=== PATIENT | male | born 1970 | race American Indian/Alaskan Native ===

== ENCOUNTER 2017-10-24 12:10 | Inpatient (IN) | payer OTHER ==
[2017-10-24] MEDS ORDERED: NACL 0.9% 1000 ML 1,000 ML IV ONE ×2 (12:45→14:12)
[2017-10-24 13:26] LABS: Basophils % (Auto) 0.5 % (0.0-1.8); Eosinophils % (Auto) 0.1 % (0.0-4.3); Hematocrit 40.6 % (35.5-45.6); Hemoglobin 14.3 gm/dl (11.8-15.2); Lymphocytes % (Auto) 14.2 % (13.4-35.0); Mean Corpuscular HGB Conc 35 % (32-34); Mean Corpuscular Hemoglobin 32 pg (28-32); Mean Corpuscular Volume 91 fl (84-94); Monocytes # (Auto) 0.5 K/mm3 (0.0-0.8); Monocytes % (Auto) 6.8 % (0.0-7.3); Platelet Count 280 K/mm3 (140-440); Red Blood Count 4.46 M/mm3 (3.65-5.03)
[2017-10-24 13:48] LABS: Alanine Aminotransferase 29 units/L (7-56); BUN/Creatinine Ratio 20; Blood Urea Nitrogen 16 mg/dL (9-20); Calcium 10.4 mg/dL (8.4-10.2); Hemolysis Index 14
[2017-10-24] MEDS ORDERED: MORPHINE IV PRN (14:10)
[2017-10-24] MEDS ORDERED: ZOFRAN IV ONE (14:11)
--- NOTE | 2017-10-24 14:14 | Emergency Department Report ---
ED Abdominal Pain HPI - General Chief Complaint: Abdominal Pain Stated Complaint: ABD PAIN Time Seen by Provider: 10/24/17 13:35 Source: EMS Mode of arrival: Stretcher Limitations: No Limitations - History of Present Illness Initial Comments: 47-year-old presents with 2 day history of increasing lower abdominal pain, with discomfort which is constant, increasing in severity, now 8-9 out of 10, aching and cramping, but across lower abdomen. He believes he is constipated, reports not having had a bowel movement in the past 4 days, the discomfort is never felt quite so bad with previous episodes of constipation. Past medical history is significant for colon cancer 3-5 years ago, with resection and reanastomosis, and patient has done well since that time. He's had no competition that he is aware of, has no other gastrointestinal history, still has his appendix, no history of diverticulitis, no history of gallstones. He has been nauseated, but has not been vomiting, and last bowel movement as previously noted, was 4 days ago. He has had no melena, no hematemesis, no hematochezia. Only other significant medical history is hypertension. Onset/Timin -: Gradual, days(s) Location: LLQ, RLQ Radiation: none Migration to: no migration Severity: moderate Severity scale (0 -10): 8 Quality: cramping, aching Consistency: constant, other (waxing and waning features) Improves With: nothing Worsens With: nothing Associated Symptoms: nausea. denies: vomiting, diarrhea, chills, constipation, dysuria - Related Data Home Medications Medication Instructions Recorded Confirmed Last Taken Nebivolol HCl [Bystolic] 10 mg PO DAILY 07/05/14 07/05/14 Unknown amLODIPine 10 mg PO DAILY 07/05/14 07/05/14 Unknown Previous Rx's Medication Instructions Recorded Last Taken Type HYDROcodone/ACETAMINOPHEN [[place] 1 each PO Q6HR PRN #15 tablet 07/03/14 Rx 7.5-325 mg TAB] Penicillin Vk [Veetids TAB] 500 mg PO QID #40 tablet 07/03/14 Unknown Rx Allergies Allergy/AdvReac Type Severity Reaction Status Date / Time No Known Allergies Allergy Unverified 07/03/14 11:27 ED Review of Systems ROS: Stated complaint: ABD PAIN Other details as noted in HPI ED Past Medical Hx - Past Medical History Hx Hypertension: Yes Hx Psychiatric Treatment: No - Surgical History Additional Surgical History: hernia repair. colon surgery - Social History Smoking Status: Never Smoker Substance Use Type: None - Medications Home Medications: Home Medications Medication Instructions Recorded Confirmed Last Taken Type HYDROcodone/ACETAMINOPHEN [[place] 1 each PO Q6HR PRN #15 tablet 07/03/1407/05/14 Rx 7.5-325 mg TAB] Penicillin Vk [Veetids TAB] 500 mg PO QID #40 tablet 07/03/14 07/05/14 Unknown Rx Nebivolol HCl [Bystolic] 10 mg PO DAILY 07/05/14 07/05/14 Unknown History amLODIPine 10 mg PO DAILY 07/05/14 07/05/14 Unknown History ED Physical Exam - General Limitations: No Limitations General appearance: alert, in distress (from abdominal discomfort, moves somewhat reluctantly) - Head Head exam: Present: atraumatic, normocephalic - Eye Eye exam: Present: PERRL, EOMI - ENT ENT exam: Present: normal exam, mucous membranes moist - Neck Neck exam: Present: normal inspection, full ROM. Absent: tenderness - Respiratory Respiratory exam: Present: normal lung sounds bilaterally. Absent: wheezes, rales, rhonchi - Cardiovascular Cardiovascular Exam: Present: regular rate, normal heart sounds - GI/Abdominal GI/Abdominal exam: Present: tenderness, guarding (moderate guarding all quadrants), rebound (2+ rebound.) ED Course Vital Signs 10/24/17 10/24/17 10/24/17 12:20 12:30 12:33 Temperature 36.6 C Pulse Rate 90 90 Respiratory 16 22 Rate Blood Pressure 138/90 136/84 Blood Pressure [Left] O2 Sat by Pulse 100 18 L Oximetry 10/24/17 10/24/17 10/24/17 12:41 12:45 13:01 Temperature Pulse Rate 104 H 112 H Respiratory 18 14 17 Rate Blood Pressure 132/95 132/95 Blood Pressure [Left] O2 Sat by Pulse 100 100 97 Oximetry 10/24/17 10/24/17 13:05 14:31 Temperature Pulse Rate Respiratory 17 17 Rate Blood Pressure Blood Pressure 132/95 [Left] O2 Sat by Pulse 97 Oximetry - Reevaluation(s) Reevaluation #1: 10/24/17 16:02 Patient resting much more comfortably after morphine and ondansetron administered, IV fluids administered, positive findings of small bowel obstruction likely due to adhesions from his prior colon resection, and admission to the care of hospitalist Dr. Zuñiga as well as consult with general surgeon Dr. Morocho. ED Medical Decision Making - Lab Data Result diagrams: 10/24/17 13:01 10/24/17 13:01 - Radiology Data Radiology results: report reviewed (early mechanical small bowel obstruction, an area of anastomosis, proximal to mid small intestine, near left upper quadrant.) - Medical Decision Making Patient has an acute small bowel obstruction, secondary to adhesions from prior surgery, he is clinically stable, resting much more comfortably, but will need consultation with surgeon, and will be hospitalized for admission, observation, comfort, and bowel rest. Further care per surgeon and hospitalist. - Differential Diagnosis constipation, small bowel obstruction Critical Care Time: No Critical care attestation.: If time is entered above; I have spent that time in minutes in the direct care of this critically ill patient, excluding procedure time. ED Disposition Clinical Impression: Small bowel obstruction due to adhesions Disposition: OP ADMIT IP TO THIS HOSP Is pt being admited?: Yes Does the pt Need Aspirin: No Condition: Stable Referrals: PRIMARY CARE, [Primary Care Provider] - 3-5 Days Time of Disposition: 16:05
--- NOTE | 2017-10-24 15:55 | Cat Scan Report ---
FINAL REPORT EXAM: CT ABDOMEN PELVIS W CON HISTORY: lower abd pain 2 d; TECHNIQUE: Spiral CT scanning of the abdomen and pelvis after the uneventful administration of IV contrast. Multiplanar reformations. 100 mL Omnipaque IV. PRIORS: None. FINDINGS: Abdomen: Visualized lung bases grossly unremarkable. No radiopaque gallstones. Liver shows small and round, hyperdense or enhancing focus in the right lobe subdiaphragmatic region measuring 1.2 cm may represent hemangioma, but nonspecific. Remainder of liver unremarkable. Rounded hypodensity in the posteroinferior spleen measuring approximately 9 mm may represent cyst or hemangioma. Remainder of spleen unremarkable. Pancreas without significant abnormality. Right renal cyst measures approximately 3 cm. Left kidney grossly unremarkable. Adrenal glands without significant abnormality. Pelvis: Postsurgical change and anastomosis in probable distal transverse or proximal descending colon in the left upper abdomen. Multiple loops of dilated proximal and mid small bowel containing gas and fluid. Distal small bowel is decompressed suggesting possible transition point. No apparent pneumatosis. Probable diminutive appendix partially visualized and grossly unremarkable. No significant free peritoneal fluid or discrete abscess. Abdominal aorta non-aneurysmal. Mild dextroconvex curvature and degenerative change in the lumbar spine. Postsurgical change and probable mesh placement in mid anterior abdominal wall. IMPRESSION: 1. Findings compatible with mechanical small bowel obstruction, with possible transition point suggested in the mid-distal small bowel, although exact location uncertain. Follow up suggested. 2. Hepatic hypodensity possibly representing hemangioma, but nonspecific. Correlation with liver ultrasound may be confirmatory, as clinically indicated. 3. Splenic hypodensity possibly representing cyst versus hemangioma or lymphangioma, but nonspecific. Correlation with ultrasound may be confirmatory, as clinically indicated. 4. Right renal cyst. Dr. Portillo discussed results with Dr. Márquez on 24 October 2017 at approximately 1543 hours EST.
--- NOTE | 2017-10-24 16:04 | History and Physical Report ---
History of Present Illness Chief complaint: my stomach hurts History of present illness: 47 YO Male with HTN, Colon Cancer S/P Resection presents to ED for evaluation. Pt states that he has experienced abdominal pain for the past 5 days with worsening symptoms over the past 2 days. Pt states that pain is 8-9/10, diffuse , worse with movement, relieved with rest. Pt denies flatus, and bowel movement over the past 2 days. Pt seen and evaluated in ED and found to have evidence of Bowel obstruction. Surgery team consulted in ED. Pt denies fever, chills, CP, Palpitation, Trauma, BRBPR, unintentional weight loss, night sweats, bone pain, melena, change in size,color, or caliber of his stool. Pt admitted to medical floor. Past History Past Medical History: cancer, hypertension Past Surgical History: bowel surgery Social history: , lives with family. denies: smoking, alcohol abuse, prescription drug abuse Family history: hypertension Medications and Allergies Allergies Allergy/AdvReac Type Severity Reaction Status Date / Time No Known Allergies Allergy Unverified 07/03/14 11:27 Home Medications Medication Instructions Recorded Confirmed Last Taken Type HYDROcodone/ACETAMINOPHEN [[place] 1 each PO Q6HR PRN #15 tablet 07/03/1407/05/14 Rx 7.5-325 mg TAB] Penicillin Vk [Veetids TAB] 500 mg PO QID #40 tablet 07/03/14 07/05/14 Unknown Rx Nebivolol HCl [Bystolic] 10 mg PO DAILY 07/05/14 07/05/14 Unknown History amLODIPine 10 mg PO DAILY 07/05/14 07/05/14 Unknown History Active Meds: Active Medications Sodium Chloride (Nacl 0.9% 1000 Ml) 1,000 mls @ 250 mls/hr IV ONCE ONE Stop: 10/24/17 16:44 Last Admin: 10/24/17 12:48 Dose: 250 mls/hr Sodium Chloride (Nacl 0.9% 1000 Ml) 1,000 mls @ 250 mls/hr IV ONCE ONE Stop: 10/24/17 18:11 Last Admin: 10/24/17 14:32 Dose: 250 mls/hr Morphine Sulfate (Morphine) 4 mg IV Q1H PRN PRN Reason: Pain, Moderate (4-6) Last Admin: 10/24/17 14:31 Dose: 4 mg Review of Systems Constitutional: no weight loss, no weight gain, no fever, no chills, no sweats, no night sweats, no anorexia, no weakness, no malaise Ears, nose, mouth and throat: no ear pain, no ear discharge, no tinnitis, no decreased hearing, no nose pain, no nasal congestion, no nasal discharge Cardiovascular: no chest pain, no orthopnea, no palpitations, no rapid/ irregular heart beat, no edema, no syncope, no lightheadedness Respiratory: no cough, no cough with sputum, no excessive sputum, no hemoptysis , no shortness of breath Gastrointestinal: abdominal pain, constipation, no nausea, no vomiting, no diarrhea, no excessive gas Genitourinary Male: no hematuria, no flank pain, no discharge, no urinary frequency, no urinary hesitancy Rectal: no pain, no incontinence, no bleeding Musculoskeletal: no neck stiffness, no neck pain, no shooting arm pain, no arm numbness/tingling, no low back pain, no shooting leg pain Integumentary: no rash, no pruritis, no redness, no sores, no wounds Neurological: no transient paralysis, no paralysis, no weakness, no parathesias , no numbness, no tingling, no seizures, no syncope Psychiatric: no anxiety, no memory loss, no change in sleep habits, no sleep disturbances, no insomnia, no hypersomnia, no change in appetite, no change in libido, no suicidal ideation, no disorientation Endocrine: no cold intolerance, no heat intolerance, no polyphagia, no excessive thirst, no polydipsia, no polyuria, no nocturia Hematologic/Lymphatic: no easy bruising, no easy bleeding, no lymphadenopathy, no lymphedema Allergic/Immunologic: no urticaria, no allergic rhinitis, no wheezing, no persistent infections, no anaphylaxis Exam - Constitutional Vitals: Temp Pulse Resp BP Pulse Ox 98 F 112 H 17 132/95 97 10/24/17 12:33 10/24/17 13:01 10/24/17 14:31 10/24/17 13:05 10/24/17 13:05 General appearance: Present: mild distress - EENT Eyes: Present: PERRL ENT: hearing intact, clear oral mucosa - Neck Neck: Present: supple, normal ROM - Respiratory Respiratory effort: normal Respiratory: bilateral: CTA - Cardiovascular Heart Sounds: Present: S1 & S2. Absent: rub, click - Extremities Extremities: pulses symmetrical, No edema Peripheral Pulses: within normal limits - Abdominal General gastrointestinal: Present: soft, tender, distended, hypoactive bowel sounds Male genitourinary: Present: normal - Integumentary Integumentary: Present: clear, warm, dry - Musculoskeletal Musculoskeletal: gait normal, strength equal bilaterally - Psychiatric Psychiatric: appropriate mood/affect, intact judgment & insight - Neurologic Neurologic: CNII-XII intact, moves all extremities Results - Labs CBC & Chem 7: 10/24/17 13:10/24/17 13:01 Labs: Abnormal lab results 10/24/17 10/24/17 Range/Units 13: 13:01 MCHC 35 H (32-34) % RDW 17.0 H (13.2-15.2) % Lymph # 1.0 L (1.2-5.4) K/mm3 Seg Neutrophils % 78.4 H (40.0-70.0) % Potassium 3.2 L (3.6-5.0) mmol/L Chloride 95.2 L (98-107) mmol/L Glucose 142 H (75-100) mg/dL Calcium 10.4 H (8.4-10.2) mg/dL Total Protein 8.3 H (6.3-8.2) g/dL Assessment and Plan - Patient Problems (1) Small bowel obstruction due to adhesions Current Visit: Yes Status: Acute Plan to address problem: Surgery consulted in ED, NGT to LWS, serial abdominal exam, pain control, CT abdomen/Pelvis (2) HTN (hypertension) Current Visit: Yes Status: Acute (3) Colon cancer Current Visit: Yes Status: Acute Qualifiers: Colon location: unspecified part of colon Qualified Code(s): C18.9 - Malignant neoplasm of colon, unspecified Plan to address problem: S/P resection, CT ABdomen pelvis, supportive care (4) DVT prophylaxis Current Visit: Yes Status: Acute Plan to address problem: SCD to BLE while in bed.
[2017-10-24] MEDS ORDERED: TYLENOL PO PRN (16:05)
[2017-10-24] MEDS ORDERED: SODIUM CHLORIDE FLUSH SYRINGE 10 ML IV PRN (16:05)
[2017-10-24] MEDS ORDERED: PROVENTIL IH PRN (16:05)
[2017-10-24] MEDS ORDERED: ATIVAN IV ONE (16:26)
[2017-10-24] MEDS ORDERED: DILAUDID IV ONE (16:26)
[2017-10-24 16:31] LABS: Bilirubin,Urine NEG (Negative); Blood,Urine NEG (Negative); Color,Urine Yellow (Yellow); Protein,Urine <15 mg/dL mg/dL (Negative); RBC,Urine < 1.0 /HPF (0.0-6.0); Urobilinogen,Urine < 2.0 mg/dL (<2.0)
[2017-10-24] MEDS ORDERED: NACL 0.9% 1000 ML 1,000 ML ONE (18:11)
[2017-10-24] MEDS: DILAUDID IV PRN (20:28)
[2017-10-24] MEDS: D5/0.45NS 1,000 ML IV SCH (20:30)
[2017-10-24] MEDS: SODIUM CHLORIDE FLUSH SYRINGE 10 ML IV SCH (22:19)
[2017-10-24] MEDS: PEPCID IV SCH (22:20)
--- NOTE | 2017-10-25 00:09 | Consultation ---
REASON FOR CONSULTATION: Rule out partial small-bowel obstruction. HISTORY OF PRESENT ILLNESS: The patient is a pleasant 47-year-old gentleman who presented to the Emergency Room with recent onset of abdominal pain accompanied by nausea, vomiting, distention and constipation. PAST MEDICAL HISTORY: Pertinent for hypertension. PAST SURGICAL HISTORY: Status post partial colectomy for colon cancer approximately 5 years ago. The patient does not know which side of the colon was removed. Also, subsequent incisional hernia, which was repaired and also subsequent bilateral inguinal hernia repairs. The patient has also had followup colonoscopies. He had a septoplasty as a child. ALLERGIES: No known allergies. MEDICATIONS: Include amlodipine for blood pressure. FAMILY HISTORY: Heart disease. SOCIAL HISTORY: Denies any smoking or drinking. REVIEW OF SYSTEMS: Noncontributory. PHYSICAL EXAMINATION: GENERAL: At this time reveals the patient to be awake, alert, cooperative, in no acute distress. VITAL SIGNS: Show him to have blood pressure of 139/74, pulse of 98, respirations 16. Temperature is not recorded on chart. ABDOMEN: Examination of the abdomen reveals to be 2+ distended and nontender at present, bowel sounds are hypoactive. A midline scar is noted consistent with the patient's previous history of colectomy as well as an incisional hernia repairs. LABORATORY AND DIAGNOSTIC DATA: Lab work at present includes a CBC which shows a white count of 7.2, H and H is 14 and 40. Electrolytes show a low sodium of 3.2 and low potassium of 95. Other electrolytes are essentially normal. BUN is 16, creatinine is 0.8. LFTs are normal. A CT scan of the abdomen has been performed and findings are as follows, the findings are consistent with a mechanical small-bowel obstruction, possible transition point suggestive in the mid to distal small bowel, possible hepatic hemangioma. Also, possible cyst versus hemangioma in the spleen. Also, multiple loops of dilated proximal and mid small bowel are noted. IMPRESSION: At this time is that of a 47-year-old male, rule out partial small-bowel obstruction. RECOMMENDATIONS: To admit the patient, keep him n.p.o. on IV fluid hydration and NG suction. We will monitor clinically and repeat abdominal series in the morning. We will follow with you. Thank you very much for the consultation. JOB# [id number] FP/NTS
[2017-10-25] MEDS: DILAUDID IV PRN ×6 (00:24→23:12)
[2017-10-25] MEDS: D5/0.45NS 1,000 ML IV SCH (05:36)
[2017-10-25 11:45] LABS: BUN/Creatinine Ratio 15; Blood Urea Nitrogen 9 mg/dL (9-20); Calcium 9.5 mg/dL (8.4-10.2); Hemolysis Index 79
--- NOTE | 2017-10-25 11:51 | Progress Note ---
Assessment and Plan Assessment and plan: Small bowel obstruction -Continue NG tube decompression -Follow up abdominal series pending -Surgery following Lactic acidosis -Resolved status post iv hydration Hypokalemia -On repletion, will monitor K level History of colon cancer status post resection -For outpatient follow-up Hypertension -Stable Disposition: For discharge when medically stable History Interval history: Patient has no new complaints. He denies abdominal pain, nausea or vomiting. Hospitalist Physical - Constitutional Vitals: Temp Pulse Resp BP Pulse Ox 98.6 F 84 16 140/84 95 10/25/17 05:15 10/25/17 05:15 10/25/17 05:15 10/25/17 05:15 10/25/17 05:15 General appearance: Present: no acute distress - EENT Eyes: Present: PERRL, EOM intact ENT: hearing intact, other (NG tube in place) - Neck Neck: Present: supple - Respiratory Respiratory effort: normal Respiratory: bilateral: CTA - Cardiovascular Rhythm: regular Heart Sounds: Present: S1 & S2 - Extremities Extremities: No edema - Abdominal General gastrointestinal: soft, non-tender, absent bowel sounds - Integumentary Integumentary: Present: clear, warm, dry - Neurologic Neurologic: CNII-XII intact Results - Labs CBC & Chem 7: 10/24/17 13:01 10/25/17 10:59 Labs: Laboratory Last Values WBC 7.2 K/mm3 (4.5-11.0) 10/24/17 13:01 RBC 4.46 M/mm3 (3.65-5.03) 10/24/17 13:01 Hgb 14.3 gm/dl (11.8-15.2) 10/24/17 13:01 Hct 40.6 % (35.5-45.6) 10/24/17 13:01 MCV 91 fl (84-94) 10/24/17 13:01 MCH 32 pg (28-32) 10/24/17 13:01 MCHC 35 % (32-34) H 10/24/17 13:01 RDW 17.0 % (13.2-15.2) H 10/24/17 13:01 Plt Count 280 K/mm3 (140-440) 10/24/17 13:01 Lymph % (Auto) 14.2 % (13.4-35.0) 10/24/17 13:01 [place] % (Auto) 6.8 % (0.0-7.3) 10/24/17 13:01 Eos % (Auto) 0.1 % (0.0-4.3) 10/24/17 13:01 Baso % (Auto) 0.5 % (0.0-1.8) 10/24/17 13:01 Lymph # 1.0 K/mm3 (1.2-5.4) L 10/24/17 13:01 [place] # 0.5 K/mm3 (0.0-0.8) 10/24/17 13:01 Eos # 0.0 K/mm3 (0.0-0.4) 10/24/17 13:01 Baso # 0.0 K/mm3 (0.0-0.1) 10/24/17 13:01 Seg Neutrophils % 78.4 % (40.0-70.0) H 10/24/17 13:01 Seg Neutrophils # 5.7 K/mm3 (1.8-7.7) 10/24/17 13:01 Sodium 139 mmol/L (137-145) 10/25/17 10:59 Potassium 3.2 mmol/L (3.6-5.0) L 10/24/17 13:01 Chloride 100.4 mmol/L (98-107) 10/25/17 10:59 Carbon Dioxide 24 mmol/L (22-30) 10/25/17 10:59 Anion Gap 19 mmol/L 10/25/17 10:59 BUN 9 mg/dL (9-20) 10/25/17 10:59 Creatinine 0.6 mg/dL (0.8-1.5) L 10/25/17 10:59 Estimated GFR > 60 ml/min 10/25/17 10:59 BUN/Creatinine Ratio 15 % 10/25/17 10:59 Glucose 109 mg/dL (75-100) H 10/25/17 10:59 Lactic Acid 1.00 mmol/L (0.7-2.0) 10/24/17 23:11 Calcium 9.5 mg/dL (8.4-10.2) 10/25/17 10:59 Magnesium 2.10 mg/dL (1.7-2.3) 10/25/17 10:59 Total Bilirubin 0.90 mg/dL (0.1-1.2) 10/24/17 13:01 AST 21 units/L (5-40) 10/24/17 13:01 ALT 29 units/L (7-56) 10/24/17 13:01 Alkaline Phosphatase 87 units/L (35-129) 10/24/17 13:01 Total Protein 8.3 g/dL (6.3-8.2) H 10/24/17 13:01 Albumin 5.0 g/dL (3.9-5) 10/24/17 13:01 Albumin/Globulin Ratio 1.5 % 10/24/17 13:01 Urine Color Yellow (Yellow) 10/24/17 Unknown Urine Turbidity Clear (Clear) 10/24/17 Unknown Urine pH 8.0 (5.0-7.0) H 10/24/17 Unknown Ur Specific [place] 1.021 (1.003-1.030) 10/24/17 Unknown Urine Protein <15 mg/dl mg/dL (Negative) 10/24/17 Unknown Urine Glucose (UA) Neg mg/dL (Negative) 10/24/17 Unknown Urine Ketones Tr mg/dL (Negative) 10/24/17 Unknown Urine Blood Neg (Negative) 10/24/17 Unknown Urine Nitrite Neg (Negative) 10/24/17 Unknown Urine Bilirubin Neg (Negative) 10/24/17 Unknown Urine Urobilinogen < 2.0 mg/dL (<2.0) 10/24/17 Unknown Ur Leukocyte Esterase Neg (Negative) 10/24/17 Unknown Urine WBC (Auto) 1.0 /HPF (0.0-6.0) 10/24/17 Unknown Urine RBC (Auto) < 1.0 /HPF (0.0-6.0) 10/24/17 Unknown U Epithel Cells (Auto) < 1.0 /HPF (0-13.0) 10/24/17 Unknown Urine Yeast ([place]) Few /HPF 10/24/17 Unknown
--- NOTE | 2017-10-25 13:02 | Progress Note ---
Assessment and Plan Pt status quo. still no flatus. minimal pain at present. over 1000 cc drained from ng Abd - decreased distention, non tender Abd series pending stable awaiting abd series findings start mineral oil per ng f/u abd series in am Selected Entries 10/25/17 10/25/17 05:15 12:00 Temperature 98.6 F Pulse Rate 87 Respiratory 16 Rate Blood Pressure 164/100 Laboratory Tests 10/25/17 10:59 Sodium 139 Potassium 3.9 D Chloride 100.4 Carbon Dioxide 24 Anion Gap 19 BUN 9 Creatinine 0.6 L Objective Vital Signs - 12hr 10/25/17 10/25/17 10/25/17 04:56 05:15 12:00 Temperature 98.6 F 99.1 F Pulse Rate 84 87 Respiratory 18 16 16 Rate Blood Pressure 140/84 164/100 O2 Sat by Pulse 95 97 Oximetry - Labs 10/24/17 13:01 10/25/17 10:59 Diabetes panel 10/24/17 10/25/17 Range/Units 13:01 10:59 Sodium 142 139 (137-145) mmol/L Potassium 3.2 L 3.9 D (3.6-5.0) mmol/L Chloride 95.2 L 100.4 (98-107) mmol/L Carbon Dioxide 24 24 (22-30) mmol/L BUN 16 9 (9-20) mg/dL Creatinine 0.8 0.6 L (0.8-1.5) mg/dL Glucose 142 H 109 H (75-100) mg/dL Calcium 10.4 H 9.5 (8.4-10.2) mg/dL AST 21 (5-40) units/L ALT 29 (7-56) units/L Alkaline Phosphatase 87 (35-129) units/L Total Protein 8.3 H (6.3-8.2) g/dL Albumin 5.0 (3.9-5) g/dL Calcium panel 10/24/17 10/25/17 Range/Units 13:01 10:59 Calcium 10.4 H 9.5 (8.4-10.2) mg/dL Albumin 5.0 (3.9-5) g/dL Pituitary panel 10/24/17 10/25/17 Range/Units 13:01 10:59 Sodium 142 139 (137-145) mmol/L Potassium 3.2 L 3.9 D (3.6-5.0) mmol/L Chloride 95.2 L 100.4 (98-107) mmol/L Carbon Dioxide 24 24 (22-30) mmol/L BUN 16 9 (9-20) mg/dL Creatinine 0.8 0.6 L (0.8-1.5) mg/dL Glucose 142 H 109 H (75-100) mg/dL Calcium 10.4 H 9.5 (8.4-10.2) mg/dL Adrenal panel 10/24/17 10/25/17 Range/Units 13:01 10:59 Sodium 142 139 (137-145) mmol/L Potassium 3.2 L 3.9 D (3.6-5.0) mmol/L Chloride 95.2 L 100.4 (98-107) mmol/L Carbon Dioxide 24 24 (22-30) mmol/L BUN 16 9 (9-20) mg/dL Creatinine 0.8 0.6 L (0.8-1.5) mg/dL Glucose 142 H 109 H (75-100) mg/dL Calcium 10.4 H 9.5 (8.4-10.2) mg/dL Total Bilirubin 0.90 (0.1-1.2) mg/dL AST 21 (5-40) units/L ALT 29 (7-56) units/L Alkaline Phosphatase 87 (35-129) units/L Total Protein 8.3 H (6.3-8.2) g/dL Albumin 5.0 (3.9-5) g/dL
[2017-10-25] MEDS: APRESOLINE IV PRN (13:03)
[2017-10-25] MEDS: PEPCID IV SCH ×2 (13:03→23:11)
[2017-10-25] MEDS: SODIUM CHLORIDE FLUSH SYRINGE 10 ML IV SCH (13:04)
--- NOTE | 2017-10-25 13:36 | XRay Report ---
ABDOMINAL SERIES: History: Follow up small bowel obstruction. Erect chest film shows no acute or significant changes involving the heart or lung santizo. A nasogastric tube has been inserted which terminates in the fundus of the stomach. Decreased dilated proximal small bowel loops is demonstrated since the CT performed yesterday. There is no evidence of free air beneath the diaphragms. shadows are unremarkable. IMPRESSION: Decreased small bowel dilatation since yesterday's exam. Near normal bowel gas pattern.
[2017-10-25] MEDS: ZOFRAN IV PRN (14:16)
[2017-10-25] MEDS: MINERAL OIL PO SCH ×3 (17:27→23:11)
[2017-10-25] MEDS: D5W/0.45% NACL/KCL 30 MEQ 30 MEQ/1,000 ML BAG IV SCH (17:28)
[2017-10-25] MEDS ORDERED: TYLENOL PR PRN (18:03)
[2017-10-26] MEDS: SODIUM CHLORIDE FLUSH SYRINGE 10 ML IV SCH ×3 (00:31→22:52)
[2017-10-26] MEDS: D5W/0.45% NACL/KCL 30 MEQ 30 MEQ/1,000 ML BAG IV SCH ×3 (00:53→23:03)
[2017-10-26] MEDS: MINERAL OIL PO SCH ×5 (01:37→18:57)
[2017-10-26] MEDS: MORPHINE IV PRN ×3 (01:54→16:45)
[2017-10-26] MEDS: DILAUDID IV PRN ×7 (03:28→20:33)
[2017-10-26] MEDS: PEPCID IV SCH ×2 (09:34→23:02)
--- NOTE | 2017-10-26 09:43 | XRay Report ---
Abdominal series: Compared to 10/25/17. History: Small bowel obstruction. Findings: Normal size heart. Linear density right lower lobe suggestive of discoid atelectasis. Tip of the NG tube in the fundus of the stomach. Few distended loops of small bowel with air-fluid levels. Stool in colon. No radiopaque calculus or abnormal calcification. Impression: Probable incomplete small bowel obstruction. No acute changes.
[2017-10-26] MEDS: ZOFRAN IV PRN (10:15)
--- NOTE | 2017-10-26 14:17 | Progress Note ---
Assessment and Plan Assessment and plan: Patient is a 47 year old male with hx of colon cancer status post resection 5 years ago with no evidence of recurrence per patient and spouse, admitted with abdominal pain with associated N/V Small bowel obstruction -Continue NG tube decompression -Follow up abdominal series pending - Worse today, await surgical re-evaluation - Pain control - Encouraged ambulation -Surgery following Lactic acidosis -Resolved status post iv hydration Hypokalemia -On repletion, will monitor K level History of colon cancer status post resection -For outpatient follow-up Hypertension -Stable DVT/GI prophy Plan of care discussed with patient and spouse. Disposition: For discharge when medically stable History Interval history: Patient seen and examined, complains of abdominal pain, worse compared to yesterday but not quite as intense as on admission. NGT remains in place. Hospitalist Physical - Constitutional Vitals: Temp Pulse Resp BP Pulse Ox 99.2 F 109 H 16 144/89 99 10/26/17 13:32 10/26/17 13:32 10/26/17 13:32 10/26/17 13:32 10/26/17 13:32 General appearance: Present: no acute distress - EENT Eyes: Present: PERRL, EOM intact - Neck Neck: Present: supple, normal ROM - Cardiovascular Rhythm: regular Heart Sounds: Present: S1 & S2 - Extremities Extremities: pulses intact, pulses symmetrical, No edema, Full ROM Peripheral Pulses: within normal limits - Abdominal General gastrointestinal: soft, tender, distended, hypoactive bowel sounds Localized gastrointestinal: tender: diffuse - Integumentary Integumentary: Present: clear, warm, dry - Psychiatric Psychiatric: appropriate mood/affect - Neurologic Neurologic: CNII-XII intact, moves all extremities Results - Labs CBC & Chem 7: 10/24/17 13:01 10/25/17 10:59 Labs: Laboratory Last Values WBC 7.2 K/mm3 (4.5-11.0) 10/24/17 13:01 RBC 4.46 M/mm3 (3.65-5.03) 10/24/17 13:01 Hgb 14.3 gm/dl (11.8-15.2) 10/24/17 13:01 Hct 40.6 % (35.5-45.6) 10/24/17 13:01 MCV 91 fl (84-94) 10/24/17 13:01 MCH 32 pg (28-32) 10/24/17 13:01 MCHC 35 % (32-34) H 10/24/17 13:01 RDW 17.0 % (13.2-15.2) H 10/24/17 13:01 Plt Count 280 K/mm3 (140-440) 10/24/17 13:01 Lymph % (Auto) 14.2 % (13.4-35.0) 10/24/17 13:01 [place] % (Auto) 6.8 % (0.0-7.3) 10/24/17 13:01 Eos % (Auto) 0.1 % (0.0-4.3) 10/24/17 13:01 Baso % (Auto) 0.5 % (0.0-1.8) 10/24/17 13:01 Lymph # 1.0 K/mm3 (1.2-5.4) L 10/24/17 13:01 [place] # 0.5 K/mm3 (0.0-0.8) 10/24/17 13:01 Eos # 0.0 K/mm3 (0.0-0.4) 10/24/17 13:01 Baso # 0.0 K/mm3 (0.0-0.1) 10/24/17 13:01 Seg Neutrophils % 78.4 % (40.0-70.0) H 10/24/17 13:01 Seg Neutrophils # 5.7 K/mm3 (1.8-7.7) 10/24/17 13:01 Sodium 139 mmol/L (137-145) 10/25/17 10:59 Potassium 3.9 mmol/L (3.6-5.0) D 10/25/17 10:59 Chloride 100.4 mmol/L (98-107) 10/25/17 10:59 Carbon Dioxide 24 mmol/L (22-30) 10/25/17 10:59 Anion Gap 19 mmol/L 10/25/17 10:59 BUN 9 mg/dL (9-20) 10/25/17 10:59 Creatinine 0.6 mg/dL (0.8-1.5) L 10/25/17 10:59 Estimated GFR > 60 ml/min 10/25/17 10:59 BUN/Creatinine Ratio 15 % 10/25/17 10:59 Glucose 109 mg/dL (75-100) H 10/25/17 10:59 Lactic Acid 1.00 mmol/L (0.7-2.0) 10/24/17 23:11 Calcium 9.5 mg/dL (8.4-10.2) 10/25/17 10:59 Magnesium 2.10 mg/dL (1.7-2.3) 10/25/17 10:59 Total Bilirubin 0.90 mg/dL (0.1-1.2) 10/24/17 13:01 AST 21 units/L (5-40) 10/24/17 13:01 ALT 29 units/L (7-56) 10/24/17 13:01 Alkaline Phosphatase 87 units/L (35-129) 10/24/17 13:01 Total Protein 8.3 g/dL (6.3-8.2) H 10/24/17 13:01 Albumin 5.0 g/dL (3.9-5) 10/24/17 13:01 Albumin/Globulin Ratio 1.5 % 10/24/17 13:01 Urine Color Yellow (Yellow) 10/24/17 Unknown Urine Turbidity Clear (Clear) 10/24/17 Unknown Urine pH 8.0 (5.0-7.0) H 10/24/17 Unknown Ur Specific [place] 1.021 (1.003-1.030) 10/24/17 Unknown Urine Protein <15 mg/dl mg/dL (Negative) 10/24/17 Unknown Urine Glucose (UA) Neg mg/dL (Negative) 10/24/17 Unknown Urine Ketones Tr mg/dL (Negative) 10/24/17 Unknown Urine Blood Neg (Negative) 10/24/17 Unknown Urine Nitrite Neg (Negative) 10/24/17 Unknown Urine Bilirubin Neg (Negative) 10/24/17 Unknown Urine Urobilinogen < 2.0 mg/dL (<2.0) 10/24/17 Unknown Ur Leukocyte Esterase Neg (Negative) 10/24/17 Unknown Urine WBC (Auto) 1.0 /HPF (0.0-6.0) 10/24/17 Unknown Urine RBC (Auto) < 1.0 /HPF (0.0-6.0) 10/24/17 Unknown U Epithel Cells (Auto) < 1.0 /HPF (0-13.0) 10/24/17 Unknown Urine Yeast (Budding) Few /HPF 10/24/17 Unknown - Imaging and Cardiology Abdominal x-ray: image reviewed (incomplete SBO)
[2017-10-26] MEDS ORDERED: DECADRON ONE (16:57)
[2017-10-26] MEDS ORDERED: ZOFRAN ONE (16:57)
[2017-10-26] MEDS ORDERED: SUBLIMAZE ONE ×3 (16:58→19:42)
[2017-10-26] MEDS ORDERED: DIPRIVAN 10 MG/ML IV ONE (16:58)
--- NOTE | 2017-10-26 17:09 | Progress Note ---
Assessment and Plan Pt no real improvement. neg flatus. now c/o increasing abd pain Abd distended. tender Abd series - minimal improvement from yesterday non improving sbo will proceed with expl lap now risks, indications and complications reviewed with pt and family. consent signed will proceed. Selected Entries 10/26/17 13:32 Temperature 99.2 F Pulse Rate 109 H Respiratory 16 Rate Blood Pressure 144/89 Laboratory Tests 10/25/17 10:59 Sodium 139 Potassium 3.9 D Chloride 100.4 Anion Gap 19 BUN 9 Objective Vital Signs - 12hr 10/26/17 10/26/17 05:57 13:32 Temperature 98.8 F 99.2 F Pulse Rate 85 109 H Respiratory 20 16 Rate Blood Pressure 143/66 144/89 O2 Sat by Pulse 96 99 Oximetry - Labs 10/24/17 13:01 10/25/17 10:59
[2017-10-26] MEDS ORDERED: NACL 0.9% IR ONE (17:20)
[2017-10-26] MEDS ORDERED: WATER FOR IRRIG STERILE IR ONE (17:20)
--- NOTE | 2017-10-26 17:25 | Anesthesia Consultation ---
Anesthesia Consult and Med Hx Date of service: 10/26/17 - Airway Anesthetic Teeth Evaluation: Good (some missing teeth) ROM Head & Neck: Adequate Mental/Hyoid Distance: Adequate Mallampati Class: Class II (NG in place) Intubation Access Assessment: Probably Good - Pre-Operative Health Status ASA Pre-Surgery Classification: ASA2, Emergency Proposed Anesthetic Plan: General - Pulmonary Hx Smoking: No Hx Asthma: No COPD: No Hx Pneumonia: No Hx Sleep Apnea: No - Cardiovascular System Hx Hypertension: Yes Hx Coronary Artery Disease: No Hx Heart Attack/AMI: No Hx Angina: No Hx Percutaneous Transluminal Coronary Angioplasty (PTCA): No Hx Pacemaker: No Hx Internal Defibrillator: No Hx Valvular Heart Disease: No Hx Heart Murmur: No Hx Peripheral Vascular Disease: No - Central Nervous System Hx Back Pain: No Hx Psychiatric Problems: No - Gastrointestinal Hx Ulcer: No - Endocrine Hx End Stage Renal Disease: No Hx Cirrhosis: No - Other Systems Hx Cancer: Yes (h/o colon CA, colon resection 2012 ) Hx Obesity: No
--- NOTE | 2017-10-26 17:27 | Anesthesia Day of Surgery ---
Anesthesia Day of Surgery - Day of Surgery Patient Examined: Yes Patient H&P Reviewed: Yes Patient is NPO: Yes Beta Blockers: Yes
[2017-10-26] MEDS ORDERED: ZEMURON IV ONE (18:03)
[2017-10-26] MEDS ORDERED: QUELICIN ONE (18:20)
[2017-10-26] MEDS ORDERED: ROBINUL ONE (19:05)
[2017-10-26] MEDS ORDERED: BLOXIVERZ ONE (19:05)
[2017-10-26] MEDS ORDERED: MORPHINE IV PRN (19:29)
[2017-10-26] MEDS ORDERED: DILAUDID ONE ×2 (19:44→20:16)
[2017-10-26] MEDS ORDERED: DEMEROL ONE (19:44)
[2017-10-26] MEDS ORDERED: NACL 0.9% 1000 ML 1,000 ML ONE ×2 (19:47→21:35)
[2017-10-26] MEDS ORDERED: DEMEROL IV PRN ×2 (19:58→19:59)
[2017-10-26] MEDS ORDERED: DILAUDID IV PRN ×2 (19:58→20:42)
[2017-10-26] MEDS ORDERED: TORADOL ONE (20:04)
[2017-10-26] MEDS ORDERED: TORADOL IV ONE (20:06)
--- NOTE | 2017-10-26 20:07 | Operative Report ---
PREOPERATIVE DIAGNOSIS: Rule out small-bowel obstruction. POSTOPERATIVE DIAGNOSIS: Essentially closed loop obstruction as well as extensive adhesions throughout the abdomen. PROCEDURE: Exploratory laparotomy, lysis of extensive adhesions. SURGEON: Marco A Perez MD ANESTHESIA: General. ESTIMATED BLOOD LOSS: Minimal. DRAINS: None. COMPLICATIONS: None. DESCRIPTION OF PROCEDURE: The patient was taken to the operating room, prepped and draped in usual sterile fashion. Midline incision was made and abdomen entered. Upon entrance into the abdomen, there were extensive omental adhesions on the undersurface of the peritoneum. Also, extensive interloop adhesions throughout the abdomen, some were filmy and some were thicker and band like. The ligament of Treitz was identified and the bowel run at that point. Thick adhesions were noted in the proximal portion of the jejunum. Another thickened adhesions were noted more in the mid portion of the jejunum again laterally forming almost a closed loop obstruction in the left upper quadrant of the abdomen. Both of these adhesions were lysed. Bowel was continued to be run and extensive adhesions noted throughout. There were still areas of dilated bowel distal to this loop obstruction site. All these other adhesions were slowly lysed until collapsed bowel was noted. The collapsed bowel was then also run down to the cecum. The patient had had a colectomy done previously and thus the anatomy was somewhat difficult to ascertain. However, all the adhesions over the dilated loops of bowel were lysed in their entirety. The bowel was once again run and no other evidence of obstruction noted. No iatrogenic injury seen. NG's position was confirmed within the gastric lumen. The entire abdomen was irrigated copiously and suction dried. Checked for hemostasis and noted to be dry. The fascia was then closed with interrupted #1 Vicryl sutures. Subcutaneous tissue was irrigated and skin closed with loki. The patient tolerated the procedure well and left OR in stable condition. JOB# [id number] FP/NTS
[2017-10-26] MEDS ORDERED: KETALAR ONE (20:48)
[2017-10-26] MEDS ORDERED: KETALAR IV PRN ×2 (20:55→21:41)
[2017-10-27] MEDS: MORPHINE IV PRN ×3 (02:16→08:20)
[2017-10-27 05:19] LABS: Hematocrit 34.8 % (35.5-45.6); Hemoglobin 11.7 gm/dl (11.8-15.2); Lymphocytes # (Auto) 0.6 K/mm3 (1.2-5.4); Lymphocytes % (Auto) 5.2 % (13.4-35.0); Mean Corpuscular HGB Conc 34 % (32-34); Mean Corpuscular Hemoglobin 31 pg (28-32); Mean Corpuscular Volume 93 fl (84-94); Monocytes # (Auto) 0.8 K/mm3 (0.0-0.8); Monocytes % (Auto) 7.3 % (0.0-7.3); Platelet Count 243 K/mm3 (140-440); Red Blood Count 3.72 M/mm3 (3.65-5.03); Red Cell Distribution Width 16.6 % (13.2-15.2)
[2017-10-27 05:37] LABS: Alanine Aminotransferase 47 units/L (7-56); Albumin 3.8 g/dL (3.9-5); BUN/Creatinine Ratio 16; Blood Urea Nitrogen 11 mg/dL (9-20); Calcium 8.9 mg/dL (8.4-10.2); Hemolysis Index 1
--- NOTE | 2017-10-27 06:34 | Post Anesthesia Evaluation ---
- Post Anesthesia Evaluation Patient Participated: Yes Airway Patent: Yes Stable Respiratory Function: Yes Nausea/Vomiting: No Temp > 96.8F: No Pain Manageable: Yes (multiple doses of dilauded; 50mg ketamine x 2) Adequeate Hydration: Yes Anesthesia Complications: No
[2017-10-27] MEDS: DILAUDID IV PRN ×6 (07:09→22:09)
--- NOTE | 2017-10-27 08:57 | Progress Note ---
Assessment and Plan Assessment and plan: Patient is a 47 year old male with hx of colon cancer status post resection 5 years ago with no evidence of recurrence per patient and spouse, admitted with abdominal pain with associated N/V Small bowel obstruction -Status post lysis of adhesion - Pain control, adjust hydromorphone -Continue NG tube decompression - Encouraged ambulation -Surgery following Lactic acidosis -Resolved status post iv hydration Hypokalemia -Resolved following repletion History of colon cancer status post resection -For outpatient follow-up Anemia - STABLE Leukocytosis - Reactive Hypertension -Stable DVT/GI prophy Plan of care discussed with patient and spouse. Disposition: For discharge when medically stable History Interval history: Patient seen and examined, due to abdominal pain persistent patient underwent an exploratory laparotomy with lysis of adhesions yesterday is doing well this morning. Still with abdominal pain. Hospitalist Physical - Physical exam Narrative exam: VITAL SIGNS: Reviewed. GENERAL: The patient appeared well nourished and normally developed. Otherwise an acute distress Vital signs as documented. HEAD: No signs of head trauma. EYES: Pupils are equal. Extraocular motions intact. EARS: Hearing grossly intact. MOUTH: Oropharynx is normal. NGT NECK: No adenopathy, no JVD. CHEST: Chest with diminished breath sounds bilaterally. No wheezes, rales, or rhonchi. CARDIAC: Regular rate and rhythm. S1 and S2, without murmurs, gallops, or rubs. VASCULAR: No Edema. Peripheral pulses normal and equal in all extremities. ABDOMEN: Soft, tender surgical site no overt drainage.. No sign of distention. No rebound or guarding, and no masses palpated. Bowel Sounds hypoactive MUSCULOSKELETAL: Good range of motion of all major joints. Extremities without clubbing, cyanosis or edema. NEUROLOGIC EXAM: Alert and oriented x 3. No focal sensory or strength deficits. Speech normal. Follows commands. PSYCHIATRIC: Mood normal. SKIN: No rash or lesions. - Constitutional Vitals: Temp Pulse Resp BP Pulse Ox 98.0 F 97 H 20 142/92 97 10/27/17 06:11 10/27/17 06:11 10/27/17 06:11 10/27/17 06:11 10/27/17 06:11 General appearance: Present: no acute distress Results - Labs CBC & Chem 7: 10/27/17 04:40 10/27/17 04:40 Labs: Laboratory Last Values WBC 11.3 K/mm3 (4.5-11.0) H 10/27/17 04:40 RBC 3.72 M/mm3 (3.65-5.03) 10/27/17 04:40 Hgb 11.7 gm/dl (11.8-15.2) L 10/27/17 04:40 Hct 34.8 % (35.5-45.6) L 10/27/17 04:40 MCV 93 fl (84-94) 10/27/17 04:40 MCH 31 pg (28-32) 10/27/17 04:40 MCHC 34 % (32-34) 10/27/17 04:40 RDW 16.6 % (13.2-15.2) H 10/27/17 04:40 Plt Count 243 K/mm3 (140-440) 10/27/17 04:40 Lymph % (Auto) 5.2 % (13.4-35.0) L 10/27/17 04:40 [place] % (Auto) 7.3 % (0.0-7.3) 10/27/17 04:40 Eos % (Auto) 0.0 % (0.0-4.3) 10/27/17 04:40 Baso % (Auto) 0.0 % (0.0-1.8) 10/27/17 04:40 Lymph # 0.6 K/mm3 (1.2-5.4) L 10/27/17 04:40 [place] # 0.8 K/mm3 (0.0-0.8) 10/27/17 04:40 Eos # 0.0 K/mm3 (0.0-0.4) 10/27/17 04:40 Baso # 0.0 K/mm3 (0.0-0.1) 10/27/17 04:40 Seg Neutrophils % 87.5 % (40.0-70.0) H 10/27/17 04:40 Seg Neutrophils # 9.9 K/mm3 (1.8-7.7) H 10/27/17 04:40 Sodium 141 mmol/L (137-145) 10/27/17 04:40 Potassium 4.2 mmol/L (3.6-5.0) 10/27/17 04:40 Chloride 104.8 mmol/L (98-107) 10/27/17 04:40 Carbon Dioxide 24 mmol/L (22-30) 10/27/17 04:40 Anion Gap 16 mmol/L 10/27/17 04:40 BUN 11 mg/dL (9-20) 10/27/17 04:40 Creatinine 0.7 mg/dL (0.8-1.5) L 10/27/17 04:40 Estimated GFR > 60 ml/min 10/27/17 04:40 BUN/Creatinine Ratio 16 % 10/27/17 04:40 Glucose 137 mg/dL (75-100) H 10/27/17 04:40 Lactic Acid 1.00 mmol/L (0.7-2.0) 10/24/17 23:11 Calcium 8.9 mg/dL (8.4-10.2) 10/27/17 04:40 Magnesium 2.10 mg/dL (1.7-2.3) 10/25/17 10:59 Total Bilirubin 1.30 mg/dL (0.1-1.2) H 10/27/17 04:40 AST 35 units/L (5-40) 10/27/17 04:40 ALT 47 units/L (7-56) 10/27/17 04:40 Alkaline Phosphatase 82 units/L (35-129) 10/27/17 04:40 Total Protein 6.4 g/dL (6.3-8.2) D 10/27/17 04:40 Albumin 3.8 g/dL (3.9-5) L 10/27/17 04:40 Albumin/Globulin Ratio 1.5 % 10/27/17 04:40 Urine Color Yellow (Yellow) 10/24/17 Unknown Urine Turbidity Clear (Clear) 10/24/17 Unknown Urine pH 8.0 (5.0-7.0) H 10/24/17 Unknown Ur Specific [place] 1.021 (1.003-1.030) 10/24/17 Unknown Urine Protein <15 mg/dl mg/dL (Negative) 10/24/17 Unknown Urine Glucose (UA) Neg mg/dL (Negative) 10/24/17 Unknown Urine Ketones Tr mg/dL (Negative) 10/24/17 Unknown Urine Blood Neg (Negative) 10/24/17 Unknown Urine Nitrite Neg (Negative) 10/24/17 Unknown Urine Bilirubin Neg (Negative) 10/24/17 Unknown Urine Urobilinogen < 2.0 mg/dL (<2.0) 10/24/17 Unknown Ur Leukocyte Esterase Neg (Negative) 10/24/17 Unknown Urine WBC (Auto) 1.0 /HPF (0.0-6.0) 10/24/17 Unknown Urine RBC (Auto) < 1.0 /HPF (0.0-6.0) 10/24/17 Unknown U Epithel Cells (Auto) < 1.0 /HPF (0-13.0) 10/24/17 Unknown Urine Yeast (Budding) Few /HPF 10/24/17 Unknown
[2017-10-27] MEDS: PEPCID IV SCH ×2 (09:29→22:06)
[2017-10-27] MEDS: D5W/0.45% NACL/KCL 30 MEQ 30 MEQ/1,000 ML BAG IV SCH ×2 (09:29→16:33)
--- NOTE | 2017-10-27 14:50 | Progress Note ---
Assessment and Plan POD # 1 Pt feeling well. c/o incisional pain dressings dry Abd 1 + distendes. neg BS dressings dry labs as below surgically stable pain control d/c styles OOB as abilio f/u labs in am Selected Entries 10/27/17 11:33 Temperature 100.3 F H Pulse Rate 94 H Respiratory 22 Rate Blood Pressure 146/83 Laboratory Tests 10/27/17 10/27/17 04:40 04:40 WBC 11.3 H Hgb 11.7 L Hct 34.8 L Sodium 141 Potassium 4.2 Chloride 104.8 Carbon Dioxide 24 Anion Gap 16 BUN 11 Creatinine 0.7 L Objective Vital Signs - 12hr 10/27/17 10/27/17 06:11 11:33 Temperature 98.0 F 100.3 F H Pulse Rate 97 H 94 H Respiratory 20 22 Rate Blood Pressure 142/92 146/83 O2 Sat by Pulse 97 94 Oximetry - Labs 10/27/17 04:40 10/27/17 04:40 Diabetes panel 10/27/17 Range/Units 04:40 Sodium 141 (137-145) mmol/L Potassium 4.2 (3.6-5.0) mmol/L Chloride 104.8 (98-107) mmol/L Carbon Dioxide 24 (22-30) mmol/L BUN 11 (9-20) mg/dL Creatinine 0.7 L (0.8-1.5) mg/dL Glucose 137 H (75-100) mg/dL Calcium 8.9 (8.4-10.2) mg/dL AST 35 (5-40) units/L ALT 47 (7-56) units/L Alkaline Phosphatase 82 (35-129) units/L Total Protein 6.4 D (6.3-8.2) g/dL Albumin 3.8 L (3.9-5) g/dL Calcium panel 10/27/17 Range/Units 04:40 Calcium 8.9 (8.4-10.2) mg/dL Albumin 3.8 L (3.9-5) g/dL Pituitary panel 10/27/17 Range/Units 04:40 Sodium 141 (137-145) mmol/L Potassium 4.2 (3.6-5.0) mmol/L Chloride 104.8 (98-107) mmol/L Carbon Dioxide 24 (22-30) mmol/L BUN 11 (9-20) mg/dL Creatinine 0.7 L (0.8-1.5) mg/dL Glucose 137 H (75-100) mg/dL Calcium 8.9 (8.4-10.2) mg/dL Adrenal panel 10/27/17 Range/Units 04:40 Sodium 141 (137-145) mmol/L Potassium 4.2 (3.6-5.0) mmol/L Chloride 104.8 (98-107) mmol/L Carbon Dioxide 24 (22-30) mmol/L BUN 11 (9-20) mg/dL Creatinine 0.7 L (0.8-1.5) mg/dL Glucose 137 H (75-100) mg/dL Calcium 8.9 (8.4-10.2) mg/dL Total Bilirubin 1.30 H (0.1-1.2) mg/dL AST 35 (5-40) units/L ALT 47 (7-56) units/L Alkaline Phosphatase 82 (35-129) units/L Total Protein 6.4 D (6.3-8.2) g/dL Albumin 3.8 L (3.9-5) g/dL
[2017-10-27] MEDS: CHLORASEPTIC MM PRN (16:34)
[2017-10-27] MEDS: ZOFRAN IV PRN ×2 (18:27→22:06)
[2017-10-27] MEDS: SODIUM CHLORIDE FLUSH SYRINGE 10 ML IV SCH ×2 (19:31→22:07)
[2017-10-28] MEDS: D5W/0.45% NACL/KCL 30 MEQ 30 MEQ/1,000 ML BAG IV SCH ×3 (01:12→17:37)
[2017-10-28] MEDS: DILAUDID IV PRN ×7 (01:13→23:50)
[2017-10-28] MEDS: ZOFRAN IV PRN ×3 (04:25→19:41)
[2017-10-28 07:01] LABS: Basophils % (Auto) 0.3 % (0.0-1.8); Eosinophils % (Auto) 0.1 % (0.0-4.3); Hematocrit 35.1 % (35.5-45.6); Hemoglobin 11.9 gm/dl (11.8-15.2); Lymphocytes # (Auto) 0.9 K/mm3 (1.2-5.4); Lymphocytes % (Auto) 11.3 % (13.4-35.0); Mean Corpuscular HGB Conc 34 % (32-34); Mean Corpuscular Hemoglobin 32 pg (28-32); Mean Corpuscular Volume 93 fl (84-94); Monocytes # (Auto) 1.2 K/mm3 (0.0-0.8); Monocytes % (Auto) 14.9 % (0.0-7.3); Platelet Count 236 K/mm3 (140-440); Red Blood Count 3.77 M/mm3 (3.65-5.03)
[2017-10-28 07:25] LABS: Alanine Aminotransferase 55 units/L (7-56); Albumin 3.8 g/dL (3.9-5); BUN/Creatinine Ratio 17; Blood Urea Nitrogen 10 mg/dL (9-20); Calcium 8.9 mg/dL (8.4-10.2); Hemolysis Index 0
--- NOTE | 2017-10-28 09:15 | Progress Note ---
Assessment and Plan Assessment and plan: Patient is a 47 year old male with hx of colon cancer status post resection 5 years ago with no evidence of recurrence per patient and spouse, admitted with abdominal pain with associated N/V Small bowel obstruction -Status post lysis of adhesion -Continues to have increase secretions from NG tube -Reports greater than 10 pain constantly asking for Dilaudid -May need a repeat imaging if pain [id number]. -Continue NG tube decompression - Encouraged ambulation -Surgery following Lactic acidosis -Resolved status post iv hydration Hypokalemia -Resolved following repletion History of colon cancer status post resection -For outpatient follow-up Transaminitis. -Will monitor. Anemia - STABLE Leukocytosis - Reactive. Resolved Hypertension -Stable DVT/GI prophy Plan of care discussed with patient and spouse. Disposition: For discharge when medically stable History Interval history: Patient seen and examined, due to abdominal pain persistent s/p exploratory laparotomy with lysis of adhesions. Still with abdominal pain but improving. Hospitalist Physical - Physical exam Narrative exam: VITAL SIGNS: Reviewed. GENERAL: The patient appeared well nourished and normally developed. Otherwise an acute distress Vital signs as documented. HEAD: No signs of head trauma. EYES: Pupils are equal. Extraocular motions intact. EARS: Hearing grossly intact. MOUTH: Oropharynx is normal. NGT NECK: No adenopathy, no JVD. CHEST: Chest with diminished breath sounds bilaterally. No wheezes, rales, or rhonchi. CARDIAC: Regular rate and rhythm. S1 and S2, without murmurs, gallops, or rubs. VASCULAR: No Edema. Peripheral pulses normal and equal in all extremities. ABDOMEN: Soft, tender surgical site no overt drainage.. No sign of distention. No rebound or guarding, and no masses palpated. Bowel Sounds hypoactive MUSCULOSKELETAL: Good range of motion of all major joints. Extremities without clubbing, cyanosis or edema. NEUROLOGIC EXAM: Alert and oriented x 3. No focal sensory or strength deficits. Speech normal. Follows commands. PSYCHIATRIC: Mood normal. SKIN: No rash or lesions. - Constitutional Vitals: Temp Pulse Resp BP Pulse Ox 98.7 F 88 20 145/85 94 10/28/17 05:21 10/28/17 05:21 10/28/17 05:21 10/28/17 05:21 10/28/17 05:21 General appearance: Present: no acute distress Results - Labs CBC & Chem 7: 10/28/17 05:38 10/28/17 05:38 Labs: Laboratory Last Values WBC 8.2 K/mm3 (4.5-11.0) 10/28/17 05:38 RBC 3.77 M/mm3 (3.65-5.03) 10/28/17 05:38 Hgb 11.9 gm/dl (11.8-15.2) 10/28/17 05:38 Hct 35.1 % (35.5-45.6) L 10/28/17 05:38 MCV 93 fl (84-94) 10/28/17 05:38 MCH 32 pg (28-32) 10/28/17 05:38 MCHC 34 % (32-34) 10/28/17 05:38 RDW 16.0 % (13.2-15.2) H 10/28/17 05:38 Plt Count 236 K/mm3 (140-440) 10/28/17 05:38 Lymph % (Auto) 11.3 % (13.4-35.0) L 10/28/17 05:38 [place] % (Auto) 14.9 % (0.0-7.3) H 10/28/17 05:38 Eos % (Auto) 0.1 % (0.0-4.3) 10/28/17 05:38 Baso % (Auto) 0.3 % (0.0-1.8) 10/28/17 05:38 Lymph # 0.9 K/mm3 (1.2-5.4) L 10/28/17 05:38 [place] # 1.2 K/mm3 (0.0-0.8) H 10/28/17 05:38 Eos # 0.0 K/mm3 (0.0-0.4) 10/28/17 05:38 Baso # 0.0 K/mm3 (0.0-0.1) 10/28/17 05:38 Seg Neutrophils % 73.4 % (40.0-70.0) H 10/28/17 05:38 Seg Neutrophils # 6.0 K/mm3 (1.8-7.7) 10/28/17 05:38 Sodium 138 mmol/L (137-145) 10/28/17 05:38 Potassium 3.8 mmol/L (3.6-5.0) 10/28/17 05:38 Chloride 98.3 mmol/L (98-107) 10/28/17 05:38 Carbon Dioxide 26 mmol/L (22-30) 10/28/17 05:38 Anion Gap 18 mmol/L 10/28/17 05:38 BUN 10 mg/dL (9-20) 10/28/17 05:38 Creatinine 0.6 mg/dL (0.8-1.5) L 10/28/17 05:38 Estimated GFR > 60 ml/min 10/28/17 05:38 BUN/Creatinine Ratio 17 % 10/28/17 05:38 Glucose 116 mg/dL (75-100) H 10/28/17 05:38 Lactic Acid 0.80 mmol/L (0.7-2.0) 10/27/17 20:28 Calcium 8.9 mg/dL (8.4-10.2) 10/28/17 05:38 Magnesium 2.10 mg/dL (1.7-2.3) 10/25/17 10:59 Total Bilirubin 1.80 mg/dL (0.1-1.2) H 10/28/17 05:38 AST 42 units/L (5-40) H 10/28/17 05:38 ALT 55 units/L (7-56) 10/28/17 05:38 Alkaline Phosphatase 100 units/L (35-129) 10/28/17 05:38 Total Protein 6.8 g/dL (6.3-8.2) 10/28/17 05:38 Albumin 3.8 g/dL (3.9-5) L 10/28/17 05:38 Albumin/Globulin Ratio 1.3 % 10/28/17 05:38 Urine Color Yellow (Yellow) 10/24/17 Unknown Urine Turbidity Clear (Clear) 10/24/17 Unknown Urine pH 8.0 (5.0-7.0) H 10/24/17 Unknown Ur Specific [place] 1.021 (1.003-1.030) 10/24/17 Unknown Urine Protein <15 mg/dl mg/dL (Negative) 10/24/17 Unknown Urine Glucose (UA) Neg mg/dL (Negative) 10/24/17 Unknown Urine Ketones Tr mg/dL (Negative) 10/24/17 Unknown Urine Blood Neg (Negative) 10/24/17 Unknown Urine Nitrite Neg (Negative) 10/24/17 Unknown Urine Bilirubin Neg (Negative) 10/24/17 Unknown Urine Urobilinogen < 2.0 mg/dL (<2.0) 10/24/17 Unknown Ur Leukocyte Esterase Neg (Negative) 10/24/17 Unknown Urine WBC (Auto) 1.0 /HPF (0.0-6.0) 10/24/17 Unknown Urine RBC (Auto) < 1.0 /HPF (0.0-6.0) 10/24/17 Unknown U Epithel Cells (Auto) < 1.0 /HPF (0-13.0) 10/24/17 Unknown Urine Yeast (Budding) Few /HPF 10/24/17 Unknown
[2017-10-28] MEDS: PEPCID IV SCH ×2 (09:29→22:08)
[2017-10-28] MEDS: CHLORASEPTIC MM PRN (09:29)
[2017-10-28] MEDS: SODIUM CHLORIDE FLUSH SYRINGE 10 ML IV SCH ×2 (10:57→22:51)
--- NOTE | 2017-10-28 11:47 | Progress Note ---
Assessment and Plan POD # 2 Pt c/o incisional pain, otherwise doing well Abd soft. dressings dry stable OOB as abilio Selected Entries 10/28/17 05:21 Temperature 98.7 F Pulse Rate 88 Respiratory 20 Rate Blood Pressure 145/85 Laboratory Tests 10/28/17 10/28/17 05:38 05:38 WBC 8.2 Hgb 11.9 Hct 35.1 L Sodium 138 Potassium 3.8 Chloride 98.3 BUN 10 Creatinine 0.6 L Objective Vital Signs - 12hr 10/28/17 10/28/17 01:24 05:21 Temperature 98.1 F 98.7 F Pulse Rate 88 Respiratory 20 Rate Blood Pressure 145/85 O2 Sat by Pulse 94 Oximetry - Labs 10/28/17 05:38 10/28/17 05:38 Diabetes panel 10/28/17 Range/Units 05:38 Sodium 138 (137-145) mmol/L Potassium 3.8 (3.6-5.0) mmol/L Chloride 98.3 (98-107) mmol/L Carbon Dioxide 26 (22-30) mmol/L BUN 10 (9-20) mg/dL Creatinine 0.6 L (0.8-1.5) mg/dL Glucose 116 H (75-100) mg/dL Calcium 8.9 (8.4-10.2) mg/dL AST 42 H (5-40) units/L ALT 55 (7-56) units/L Alkaline Phosphatase 100 (35-129) units/L Total Protein 6.8 (6.3-8.2) g/dL Albumin 3.8 L (3.9-5) g/dL Calcium panel 10/28/17 Range/Units 05:38 Calcium 8.9 (8.4-10.2) mg/dL Albumin 3.8 L (3.9-5) g/dL Pituitary panel 10/28/17 Range/Units 05:38 Sodium 138 (137-145) mmol/L Potassium 3.8 (3.6-5.0) mmol/L Chloride 98.3 (98-107) mmol/L Carbon Dioxide 26 (22-30) mmol/L BUN 10 (9-20) mg/dL Creatinine 0.6 L (0.8-1.5) mg/dL Glucose 116 H (75-100) mg/dL Calcium 8.9 (8.4-10.2) mg/dL Adrenal panel 10/28/17 Range/Units 05:38 Sodium 138 (137-145) mmol/L Potassium 3.8 (3.6-5.0) mmol/L Chloride 98.3 (98-107) mmol/L Carbon Dioxide 26 (22-30) mmol/L BUN 10 (9-20) mg/dL Creatinine 0.6 L (0.8-1.5) mg/dL Glucose 116 H (75-100) mg/dL Calcium 8.9 (8.4-10.2) mg/dL Total Bilirubin 1.80 H (0.1-1.2) mg/dL AST 42 H (5-40) units/L ALT 55 (7-56) units/L Alkaline Phosphatase 100 (35-129) units/L Total Protein 6.8 (6.3-8.2) g/dL Albumin 3.8 L (3.9-5) g/dL
[2017-10-28] MEDS: CEPACOL X STRENGTH MM PRN ×2 (17:37→22:59)
[2017-10-28] MEDS: APRESOLINE IV PRN (22:52)
[2017-10-28] MEDS ORDERED: BENADRYL IV NR (22:58)
[2017-10-29] MEDS: D5W/0.45% NACL/KCL 30 MEQ 30 MEQ/1,000 ML BAG IV SCH ×3 (02:14→23:47)
[2017-10-29] MEDS: ZOFRAN IV PRN ×2 (03:38→18:53)
[2017-10-29] MEDS: DILAUDID IV PRN ×6 (03:39→22:03)
--- NOTE | 2017-10-29 07:27 | Progress Note ---
Assessment and Plan POD #3 Pt status quo. c/o of incisional pain Abd soft, dressings dry. - BS decreased bi-basilar BS stable ambulation down halls f/u labs in am CPT Selected Entries 10/28/17 10/28/17 10/29/17 22:30 22:52 03:39 Temperature 99.5 F Pulse Rate 95 H Respiratory 20 Rate Blood Pressure 164/106 Objective Vital Signs - 12hr 10/28/17 10/28/17 10/28/17 19:41 20:02 22:30 Temperature 99.5 F Pulse Rate 95 H Respiratory 20 20 20 Rate Blood Pressure 164/106 O2 Sat by Pulse 95 Oximetry 10/28/17 10/28/17 10/29/17 22:52 23:50 03:39 Temperature Pulse Rate 101 H Respiratory 24 20 Rate Blood Pressure 164/106 O2 Sat by Pulse Oximetry - Labs 10/28/17 05:38 10/28/17 05:38 Diabetes panel 10/28/17 Range/Units 05:38 Sodium 138 (137-145) mmol/L Potassium 3.8 (3.6-5.0) mmol/L Chloride 98.3 (98-107) mmol/L Carbon Dioxide 26 (22-30) mmol/L BUN 10 (9-20) mg/dL Creatinine 0.6 L (0.8-1.5) mg/dL Glucose 116 H (75-100) mg/dL Calcium 8.9 (8.4-10.2) mg/dL AST 42 H (5-40) units/L ALT 55 (7-56) units/L Alkaline Phosphatase 100 (35-129) units/L Total Protein 6.8 (6.3-8.2) g/dL Albumin 3.8 L (3.9-5) g/dL Calcium panel 10/28/17 Range/Units 05:38 Calcium 8.9 (8.4-10.2) mg/dL Albumin 3.8 L (3.9-5) g/dL Pituitary panel 10/28/17 Range/Units 05:38 Sodium 138 (137-145) mmol/L Potassium 3.8 (3.6-5.0) mmol/L Chloride 98.3 (98-107) mmol/L Carbon Dioxide 26 (22-30) mmol/L BUN 10 (9-20) mg/dL Creatinine 0.6 L (0.8-1.5) mg/dL Glucose 116 H (75-100) mg/dL Calcium 8.9 (8.4-10.2) mg/dL Adrenal panel 10/28/17 Range/Units 05:38 Sodium 138 (137-145) mmol/L Potassium 3.8 (3.6-5.0) mmol/L Chloride 98.3 (98-107) mmol/L Carbon Dioxide 26 (22-30) mmol/L BUN 10 (9-20) mg/dL Creatinine 0.6 L (0.8-1.5) mg/dL Glucose 116 H (75-100) mg/dL Calcium 8.9 (8.4-10.2) mg/dL Total Bilirubin 1.80 H (0.1-1.2) mg/dL AST 42 H (5-40) units/L ALT 55 (7-56) units/L Alkaline Phosphatase 100 (35-129) units/L Total Protein 6.8 (6.3-8.2) g/dL Albumin 3.8 L (3.9-5) g/dL
[2017-10-29] MEDS ORDERED: PROAIR IH PRN (07:28)
[2017-10-29] MEDS ORDERED: PROVENTIL IH PRN (07:43)
[2017-10-29] MEDS ORDERED: NACL 0.9% 500 ML IR ONE (10:20)
[2017-10-29] MEDS: PEPCID IV SCH ×2 (10:27→22:02)
[2017-10-29] MEDS: SODIUM CHLORIDE FLUSH SYRINGE 10 ML IV SCH ×2 (10:29→22:02)
[2017-10-29] MEDS ORDERED: NACL 0.9% IR PRN (12:27)
--- NOTE | 2017-10-29 17:38 | Progress Note ---
Assessment and Plan - Patient Problems (1) Colon cancer Current Visit: Yes Status: Acute Qualifiers: Colon location: unspecified part of colon Qualified Code(s): C18.9 - Malignant neoplasm of colon, unspecified Plan to address problem: We'll follow-up with oncology on an outpatient. (2) HTN (hypertension) Current Visit: Yes Status: Acute Plan to address problem: Her present blood pressure very well controlled. Continue present management. (3) Small bowel obstruction due to adhesions Current Visit: Yes Status: Acute Plan to address problem: Patient status post surgical correction of bowel obstruction. Awaiting patient to pass gas have stool prior to discharge. Surgery following. History Interval history: Patient still has NG tube this a.m. States he feels better. Complains of some incisional pain. States suboptimal with current regime. Afebrile. Has not passed gas as of yet. Hospitalist Physical - Constitutional Vitals: Temp Pulse Resp BP Pulse Ox 99.2 F 91 H 20 148/95 97 10/29/17 12:41 10/29/17 12:41 10/29/17 12:41 10/29/17 12:41 10/29/17 12:41 General appearance: Present: no acute distress - EENT Eyes: Present: PERRL, EOM intact ENT: hearing intact, clear oral mucosa, dentition normal, no oropharyngeal erythema, no poor dentition, no thrush, no ulcerations - Neck Neck: Present: supple, normal ROM. Absent: masses or JVD - Cardiovascular Rhythm: regularly irregular Heart Sounds: Absent: S1 & S2, gallop, systolic murmur - Extremities Extremities: no ischemia, pulses intact, pulses symmetrical, No edema, normal temperature, normal color, Full ROM Extremity abnormal: edema - Abdominal General gastrointestinal: soft, distended, hypoactive bowel sounds - Integumentary Integumentary: Present: warm, dry - Psychiatric Psychiatric: appropriate mood/affect, intact judgment & insight, memory intact - Neurologic Neurologic: CNII-XII intact, focal deficits, moves all extremities Results - Labs CBC & Chem 7: 10/28/17 05:38 10/28/17 05:38 Labs: Laboratory Last Values WBC 8.2 K/mm3 (4.5-11.0) 10/28/17 05:38 RBC 3.77 M/mm3 (3.65-5.03) 10/28/17 05:38 Hgb 11.9 gm/dl (11.8-15.2) 10/28/17 05:38 Hct 35.1 % (35.5-45.6) L 10/28/17 05:38 MCV 93 fl (84-94) 10/28/17 05:38 MCH 32 pg (28-32) 10/28/17 05:38 MCHC 34 % (32-34) 10/28/17 05:38 RDW 16.0 % (13.2-15.2) H 10/28/17 05:38 Plt Count 236 K/mm3 (140-440) 10/28/17 05:38 Lymph % (Auto) 11.3 % (13.4-35.0) L 10/28/17 05:38 [place] % (Auto) 14.9 % (0.0-7.3) H 10/28/17 05:38 Eos % (Auto) 0.1 % (0.0-4.3) 10/28/17 05:38 Baso % (Auto) 0.3 % (0.0-1.8) 10/28/17 05:38 Lymph # 0.9 K/mm3 (1.2-5.4) L 10/28/17 05:38 [place] # 1.2 K/mm3 (0.0-0.8) H 10/28/17 05:38 Eos # 0.0 K/mm3 (0.0-0.4) 10/28/17 05:38 Baso # 0.0 K/mm3 (0.0-0.1) 10/28/17 05:38 Seg Neutrophils % 73.4 % (40.0-70.0) H 10/28/17 05:38 Seg Neutrophils # 6.0 K/mm3 (1.8-7.7) 10/28/17 05:38 Sodium 138 mmol/L (137-145) 10/28/17 05:38 Potassium 3.8 mmol/L (3.6-5.0) 10/28/17 05:38 Chloride 98.3 mmol/L (98-107) 10/28/17 05:38 Carbon Dioxide 26 mmol/L (22-30) 10/28/17 05:38 Anion Gap 18 mmol/L 10/28/17 05:38 BUN 10 mg/dL (9-20) 10/28/17 05:38 Creatinine 0.6 mg/dL (0.8-1.5) L 10/28/17 05:38 Estimated GFR > 60 ml/min 10/28/17 05:38 BUN/Creatinine Ratio 17 % 10/28/17 05:38 Glucose 116 mg/dL (75-100) H 10/28/17 05:38 Lactic Acid 0.80 mmol/L (0.7-2.0) 10/27/17 20:28 Calcium 8.9 mg/dL (8.4-10.2) 10/28/17 05:38 Magnesium 2.10 mg/dL (1.7-2.3) 10/25/17 10:59 Total Bilirubin 1.80 mg/dL (0.1-1.2) H 10/28/17 05:38 AST 42 units/L (5-40) H 10/28/17 05:38 ALT 55 units/L (7-56) 10/28/17 05:38 Alkaline Phosphatase 100 units/L (35-129) 10/28/17 05:38 Total Protein 6.8 g/dL (6.3-8.2) 10/28/17 05:38 Albumin 3.8 g/dL (3.9-5) L 10/28/17 05:38 Albumin/Globulin Ratio 1.3 % 10/28/17 05:38 Urine Color Yellow (Yellow) 10/24/17 Unknown Urine Turbidity Clear (Clear) 10/24/17 Unknown Urine pH 8.0 (5.0-7.0) H 10/24/17 Unknown Ur Specific [place] 1.021 (1.003-1.030) 10/24/17 Unknown Urine Protein <15 mg/dl mg/dL (Negative) 10/24/17 Unknown Urine Glucose (UA) Neg mg/dL (Negative) 10/24/17 Unknown Urine Ketones Tr mg/dL (Negative) 10/24/17 Unknown Urine Blood Neg (Negative) 10/24/17 Unknown Urine Nitrite Neg (Negative) 10/24/17 Unknown Urine Bilirubin Neg (Negative) 10/24/17 Unknown Urine Urobilinogen < 2.0 mg/dL (<2.0) 10/24/17 Unknown Ur Leukocyte Esterase Neg (Negative) 10/24/17 Unknown Urine WBC (Auto) 1.0 /HPF (0.0-6.0) 10/24/17 Unknown Urine RBC (Auto) < 1.0 /HPF (0.0-6.0) 10/24/17 Unknown U Epithel Cells (Auto) < 1.0 /HPF (0-13.0) 10/24/17 Unknown Urine Yeast (Budding) Few /HPF 10/24/17 Unknown
[2017-10-29] MEDS ORDERED: AMBIEN PO PRN (18:04)
[2017-10-29] MEDS ORDERED: ATIVAN IV ONE (22:49)
[2017-10-30] MEDS: ZOFRAN IV PRN ×4 (01:14→23:32)
[2017-10-30] MEDS: DILAUDID IV PRN ×6 (01:15→23:28)
[2017-10-30 06:09] LABS: Basophils % (Auto) 0.5 % (0.0-1.8); Eosinophils # (Auto) 0.1 K/mm3 (0.0-0.4); Hematocrit 36.8 % (35.5-45.6); Hemoglobin 12.4 gm/dl (11.8-15.2); Lymphocytes # (Auto) 1.4 K/mm3 (1.2-5.4); Lymphocytes % (Auto) 17.9 % (13.4-35.0); Mean Corpuscular HGB Conc 34 % (32-34); Mean Corpuscular Hemoglobin 32 pg (28-32); Mean Corpuscular Volume 94 fl (84-94); Monocytes # (Auto) 1.1 K/mm3 (0.0-0.8); Monocytes % (Auto) 14.3 % (0.0-7.3); Platelet Count 291 K/mm3 (140-440); Red Blood Count 3.93 M/mm3 (3.65-5.03); Red Cell Distribution Width 15.8 % (13.2-15.2)
[2017-10-30 06:28] LABS: Alanine Aminotransferase 61 units/L (7-56); Albumin 3.8 g/dL (3.9-5); BUN/Creatinine Ratio 18; Blood Urea Nitrogen 14 mg/dL (9-20); Calcium 9.3 mg/dL (8.4-10.2); Hemolysis Index 2
--- NOTE | 2017-10-30 08:30 | XRay Report ---
FINAL REPORT EXAM: XR ABD SERIES W CXR 1V HISTORY: sbo TECHNIQUE: PA chest radiograph, upright and supine views of the abdomen and pelvis PRIORS: Preoperative CT 10/24/2017 FINDINGS: No mediastinal shift. Cardiac silhouette is not enlarged. No pneumothorax or effusion. Ill-defined right basilar opacity. Enteric tube is within the stomach with distal side port below the gastroesophageal junction. Multiple dilated loops of small bowel are present. Bowel gas extends throughout the length of the colon and into the pelvis. A few air-fluid levels are seen in the small bowel and colon. No pneumoperitoneum. Midline surgical skin closure clips. IMPRESSION: Air-filled prominence with several fluid levels involving both the small bowel and colon. Differential diagnosis includes postoperative ileus as well as persistent bowel obstruction.
--- NOTE | 2017-10-30 12:07 | Progress Note ---
Assessment and Plan - Patient Problems (1) Colon cancer Current Visit: Yes Status: Acute Qualifiers: Colon location: unspecified part of colon Qualified Code(s): C18.9 - Malignant neoplasm of colon, unspecified Plan to address problem: We'll follow-up with oncology on an outpatient. (2) HTN (hypertension) Current Visit: Yes Status: Acute Plan to address problem: Her present blood pressure very well controlled. Continue present management. (3) Small bowel obstruction due to adhesions Current Visit: Yes Status: Acute Plan to address problem: At present patient has abdominal pain unsure of visits incisional pain. Patient did have NG tube does not appear to be draining. We'll check for proper placement. Discussed case with surgeon History Interval history: Patient today was noted to be in pain. Mid epigastric pain. Facial grimace. Patient stated he noticed pain after he got back from walking the halls." May have done too much". Patient relates pain midepigastric sharp. Patient NG tube came out over the p.m. and was replaced at about 5 AM this morning. Patient was medicated for pain now. Hospitalist Physical - Constitutional Vitals: Temp Pulse Resp BP Pulse Ox 98.8 F 90 18 147/95 95 10/30/17 06:21 10/30/17 06:21 10/30/17 06:21 10/30/17 06:21 10/30/17 06:21 General appearance: Present: well-nourished, other - EENT Eyes: Present: PERRL, EOM intact ENT: hearing intact, clear oral mucosa, dentition normal - Neck Neck: Present: supple, normal ROM - Respiratory Respiratory effort: normal - Cardiovascular Rhythm: regular Heart Sounds: Present: S1 & S2. Absent: systolic murmur, diastolic murmur - Extremities Extremities: no ischemia, pulses intact, pulses symmetrical, No edema, normal temperature, normal color, Full ROM Peripheral Pulses: within normal limits - Abdominal General gastrointestinal: tender, hypoactive bowel sounds, other (bandaged) - Psychiatric Psychiatric: appropriate mood/affect, intact judgment & insight, memory intact - Neurologic Neurologic: CNII-XII intact, no focal deficits, moves all extremities Results - Labs CBC & Chem 7: 10/30/17 04:54 10/30/17 04:54 Labs: Laboratory Last Values WBC 7.9 K/mm3 (4.5-11.0) 10/30/17 04:54 RBC 3.93 M/mm3 (3.65-5.03) 10/30/17 04:54 Hgb 12.4 gm/dl (11.8-15.2) 10/30/17 04:54 Hct 36.8 % (35.5-45.6) 10/30/17 04:54 MCV 94 fl (84-94) 10/30/17 04:54 MCH 32 pg (28-32) 10/30/17 04:54 MCHC 34 % (32-34) 10/30/17 04:54 RDW 15.8 % (13.2-15.2) H 10/30/17 04:54 Plt Count 291 K/mm3 (140-440) 10/30/17 04:54 Lymph % (Auto) 17.9 % (13.4-35.0) 10/30/17 04:54 [place] % (Auto) 14.3 % (0.0-7.3) H 10/30/17 04:54 Eos % (Auto) 1.0 % (0.0-4.3) 10/30/17 04:54 Baso % (Auto) 0.5 % (0.0-1.8) 10/30/17 04:54 Lymph # 1.4 K/mm3 (1.2-5.4) 10/30/17 04:54 [place] # 1.1 K/mm3 (0.0-0.8) H 10/30/17 04:54 Eos # 0.1 K/mm3 (0.0-0.4) 10/30/17 04:54 Baso # 0.0 K/mm3 (0.0-0.1) 10/30/17 04:54 Seg Neutrophils % 66.3 % (40.0-70.0) 10/30/17 04:54 Seg Neutrophils # 5.3 K/mm3 (1.8-7.7) 10/30/17 04:54 Sodium 139 mmol/L (137-145) 10/30/17 04:54 Potassium 4.0 mmol/L (3.6-5.0) 10/30/17 04:54 Chloride 100.7 mmol/L (98-107) 10/30/17 04:54 Carbon Dioxide 26 mmol/L (22-30) 10/30/17 04:54 Anion Gap 16 mmol/L 10/30/17 04:54 BUN 14 mg/dL (9-20) 10/30/17 04:54 Creatinine 0.8 mg/dL (0.8-1.5) 10/30/17 04:54 Estimated GFR > 60 ml/min 10/30/17 04:54 BUN/Creatinine Ratio 18 % 10/30/17 04:54 Glucose 119 mg/dL (75-100) H 10/30/17 04:54 Lactic Acid 0.80 mmol/L (0.7-2.0) 10/27/17 20:28 Calcium 9.3 mg/dL (8.4-10.2) 10/30/17 04:54 Magnesium 2.10 mg/dL (1.7-2.3) 10/25/17 10:59 Total Bilirubin 0.90 mg/dL (0.1-1.2) 10/30/17 04:54 AST 28 units/L (5-40) 10/30/17 04:54 ALT 61 units/L (7-56) H 10/30/17 04:54 Alkaline Phosphatase 150 units/L (35-129) H 10/30/17 04:54 Total Protein 7.0 g/dL (6.3-8.2) 10/30/17 04:54 Albumin 3.8 g/dL (3.9-5) L 10/30/17 04:54 Albumin/Globulin Ratio 1.2 % 10/30/17 04:54 Urine Color Yellow (Yellow) 10/24/17 Unknown Urine Turbidity Clear (Clear) 10/24/17 Unknown Urine pH 8.0 (5.0-7.0) H 10/24/17 Unknown Ur Specific [place] 1.021 (1.003-1.030) 10/24/17 Unknown Urine Protein <15 mg/dl mg/dL (Negative) 10/24/17 Unknown Urine Glucose (UA) Neg mg/dL (Negative) 10/24/17 Unknown Urine Ketones Tr mg/dL (Negative) 10/24/17 Unknown Urine Blood Neg (Negative) 10/24/17 Unknown Urine Nitrite Neg (Negative) 10/24/17 Unknown Urine Bilirubin Neg (Negative) 10/24/17 Unknown Urine Urobilinogen < 2.0 mg/dL (<2.0) 10/24/17 Unknown Ur Leukocyte Esterase Neg (Negative) 10/24/17 Unknown Urine WBC (Auto) 1.0 /HPF (0.0-6.0) 10/24/17 Unknown Urine RBC (Auto) < 1.0 /HPF (0.0-6.0) 10/24/17 Unknown U Epithel Cells (Auto) < 1.0 /HPF (0-13.0) 10/24/17 Unknown Urine Yeast (Budding) Few /HPF 10/24/17 Unknown
--- NOTE | 2017-10-30 12:29 | Progress Note ---
Assessment and Plan POD #4 Pt in better spirits today. appears more comfortable. no compl. neg flatus. ng accidentally pulled last night but now, back in place. Abd 1+ distended. non tender. incision clean and dry - BS Abd series - dilated large and small bowel consistent with ileus stable continue present care Selected Entries 10/30/17 06:21 Temperature 98.8 F Pulse Rate 90 Respiratory 18 Rate Blood Pressure 147/95 Laboratory Tests 10/30/17 10/30/17 04:54 04:54 WBC 7.9 Hgb 12.4 Hct 36.8 Sodium 139 Potassium 4.0 Chloride 100.7 Carbon Dioxide 26 BUN 14 Creatinine 0.8 Objective Vital Signs - 12hr 10/30/17 10/30/17 10/30/17 01:15 04:19 06:21 Temperature 98.8 F Pulse Rate 90 Respiratory 20 20 18 Rate Blood Pressure 147/95 O2 Sat by Pulse 95 Oximetry - Labs 10/30/17 04:54 10/30/17 04:54 Diabetes panel 10/30/17 Range/Units 04:54 Sodium 139 (137-145) mmol/L Potassium 4.0 (3.6-5.0) mmol/L Chloride 100.7 (98-107) mmol/L Carbon Dioxide 26 (22-30) mmol/L BUN 14 (9-20) mg/dL Creatinine 0.8 (0.8-1.5) mg/dL Glucose 119 H (75-100) mg/dL Calcium 9.3 (8.4-10.2) mg/dL AST 28 (5-40) units/L ALT 61 H (7-56) units/L Alkaline Phosphatase 150 H (35-129) units/L Total Protein 7.0 (6.3-8.2) g/dL Albumin 3.8 L (3.9-5) g/dL Calcium panel 10/30/17 Range/Units 04:54 Calcium 9.3 (8.4-10.2) mg/dL Albumin 3.8 L (3.9-5) g/dL Pituitary panel 10/30/17 Range/Units 04:54 Sodium 139 (137-145) mmol/L Potassium 4.0 (3.6-5.0) mmol/L Chloride 100.7 (98-107) mmol/L Carbon Dioxide 26 (22-30) mmol/L BUN 14 (9-20) mg/dL Creatinine 0.8 (0.8-1.5) mg/dL Glucose 119 H (75-100) mg/dL Calcium 9.3 (8.4-10.2) mg/dL Adrenal panel 10/30/17 Range/Units 04:54 Sodium 139 (137-145) mmol/L Potassium 4.0 (3.6-5.0) mmol/L Chloride 100.7 (98-107) mmol/L Carbon Dioxide 26 (22-30) mmol/L BUN 14 (9-20) mg/dL Creatinine 0.8 (0.8-1.5) mg/dL Glucose 119 H (75-100) mg/dL Calcium 9.3 (8.4-10.2) mg/dL Total Bilirubin 0.90 (0.1-1.2) mg/dL AST 28 (5-40) units/L ALT 61 H (7-56) units/L Alkaline Phosphatase 150 H (35-129) units/L Total Protein 7.0 (6.3-8.2) g/dL Albumin 3.8 L (3.9-5) g/dL
[2017-10-30] MEDS: SODIUM CHLORIDE FLUSH SYRINGE 10 ML IV SCH (17:03)
[2017-10-30] MEDS: PEPCID IV SCH ×2 (17:03→21:56)
[2017-10-30] MEDS: D5W/0.45% NACL/KCL 30 MEQ 30 MEQ/1,000 ML BAG IV SCH (22:03)
[2017-10-31] MEDS: DILAUDID IV PRN ×7 (03:01→22:27)
[2017-10-31] MEDS: SODIUM CHLORIDE FLUSH SYRINGE 10 ML IV SCH ×3 (03:05→22:28)
--- NOTE | 2017-10-31 13:23 | Progress Note ---
Assessment and Plan - Patient Problems (1) Colon cancer Current Visit: Yes Status: Acute Qualifiers: Colon location: unspecified part of colon Qualified Code(s): C18.9 - Malignant neoplasm of colon, unspecified Plan to address problem: We'll follow-up with oncology on an outpatient. (2) HTN (hypertension) Current Visit: Yes Status: Acute Plan to address problem: She continues to have optimal control of blood pressure continue all antihypertensive medications. (3) Small bowel obstruction due to adhesions Current Visit: Yes Status: Acute Plan to address problem: At present patient has abdominal pain unsure of visits incisional pain. Patient did have NG tube does not appear to be draining. We'll check for proper placement. Discussed case with surgeon History Interval history: Patient is much better today patient had repositioning of NG tube and almost immediately got better. Patient is afebrile continues to have some incisional pain passing gas but no bowel movement. Hospitalist Physical - Constitutional Vitals: Temp Pulse Resp BP Pulse Ox 98.0 F 78 18 138/87 96 10/31/17 12:51 10/31/17 12:51 10/31/17 12:51 10/31/17 12:51 10/31/17 12:51 General appearance: Present: no acute distress, well-nourished, other - EENT Eyes: Present: PERRL, EOM intact ENT: hearing intact, clear oral mucosa, dentition normal - Neck Neck: Present: supple, normal ROM - Respiratory Respiratory effort: normal Respiratory: bilateral: CTA - Cardiovascular Rhythm: regular Heart Sounds: Present: S1 & S2 - Extremities Extremities: no ischemia, pulses intact, pulses symmetrical, No edema, normal temperature, normal color Peripheral Pulses: within normal limits - Abdominal General gastrointestinal: soft, tender, other (incisional pain some tenderness hypoactive bowel sounds.) - Psychiatric Psychiatric: appropriate mood/affect, intact judgment & insight - Neurologic Neurologic: CNII-XII intact, no focal deficits, moves all extremities Results - Labs CBC & Chem 7: 10/30/17 04:54 10/30/17 04:54 Labs: Laboratory Last Values WBC 7.9 K/mm3 (4.5-11.0) 10/30/17 04:54 RBC 3.93 M/mm3 (3.65-5.03) 10/30/17 04:54 Hgb 12.4 gm/dl (11.8-15.2) 10/30/17 04:54 Hct 36.8 % (35.5-45.6) 10/30/17 04:54 MCV 94 fl (84-94) 10/30/17 04:54 MCH 32 pg (28-32) 10/30/17 04:54 MCHC 34 % (32-34) 10/30/17 04:54 RDW 15.8 % (13.2-15.2) H 10/30/17 04:54 Plt Count 291 K/mm3 (140-440) 10/30/17 04:54 Lymph % (Auto) 17.9 % (13.4-35.0) 10/30/17 04:54 [place] % (Auto) 14.3 % (0.0-7.3) H 10/30/17 04:54 Eos % (Auto) 1.0 % (0.0-4.3) 10/30/17 04:54 Baso % (Auto) 0.5 % (0.0-1.8) 10/30/17 04:54 Lymph # 1.4 K/mm3 (1.2-5.4) 10/30/17 04:54 [place] # 1.1 K/mm3 (0.0-0.8) H 10/30/17 04:54 Eos # 0.1 K/mm3 (0.0-0.4) 10/30/17 04:54 Baso # 0.0 K/mm3 (0.0-0.1) 10/30/17 04:54 Seg Neutrophils % 66.3 % (40.0-70.0) 10/30/17 04:54 Seg Neutrophils # 5.3 K/mm3 (1.8-7.7) 10/30/17 04:54 Sodium 139 mmol/L (137-145) 10/30/17 04:54 Potassium 4.0 mmol/L (3.6-5.0) 10/30/17 04:54 Chloride 100.7 mmol/L (98-107) 10/30/17 04:54 Carbon Dioxide 26 mmol/L (22-30) 10/30/17 04:54 Anion Gap 16 mmol/L 10/30/17 04:54 BUN 14 mg/dL (9-20) 10/30/17 04:54 Creatinine 0.8 mg/dL (0.8-1.5) 10/30/17 04:54 Estimated GFR > 60 ml/min 10/30/17 04:54 BUN/Creatinine Ratio 18 % 10/30/17 04:54 Glucose 119 mg/dL (75-100) H 10/30/17 04:54 Lactic Acid 0.80 mmol/L (0.7-2.0) 10/27/17 20:28 Calcium 9.3 mg/dL (8.4-10.2) 10/30/17 04:54 Magnesium 2.10 mg/dL (1.7-2.3) 10/25/17 10:59 Total Bilirubin 0.90 mg/dL (0.1-1.2) 10/30/17 04:54 AST 28 units/L (5-40) 10/30/17 04:54 ALT 61 units/L (7-56) H 10/30/17 04:54 Alkaline Phosphatase 150 units/L (35-129) H 10/30/17 04:54 Total Protein 7.0 g/dL (6.3-8.2) 10/30/17 04:54 Albumin 3.8 g/dL (3.9-5) L 10/30/17 04:54 Albumin/Globulin Ratio 1.2 % 10/30/17 04:54 Urine Color Yellow (Yellow) 10/24/17 Unknown Urine Turbidity Clear (Clear) 10/24/17 Unknown Urine pH 8.0 (5.0-7.0) H 10/24/17 Unknown Ur Specific [place] 1.021 (1.003-1.030) 10/24/17 Unknown Urine Protein <15 mg/dl mg/dL (Negative) 10/24/17 Unknown Urine Glucose (UA) Neg mg/dL (Negative) 10/24/17 Unknown Urine Ketones Tr mg/dL (Negative) 10/24/17 Unknown Urine Blood Neg (Negative) 10/24/17 Unknown Urine Nitrite Neg (Negative) 10/24/17 Unknown Urine Bilirubin Neg (Negative) 10/24/17 Unknown Urine Urobilinogen < 2.0 mg/dL (<2.0) 10/24/17 Unknown Ur Leukocyte Esterase Neg (Negative) 10/24/17 Unknown Urine WBC (Auto) 1.0 /HPF (0.0-6.0) 10/24/17 Unknown Urine RBC (Auto) < 1.0 /HPF (0.0-6.0) 10/24/17 Unknown U Epithel Cells (Auto) < 1.0 /HPF (0-13.0) 10/24/17 Unknown Urine Yeast (Budding) Few /HPF 10/24/17 Unknown
[2017-10-31] MEDS: PEPCID IV SCH ×2 (13:43→22:28)
[2017-10-31] MEDS: ZOFRAN IV PRN (17:02)
[2017-10-31] MEDS: D5W/0.45% NACL/KCL 30 MEQ 30 MEQ/1,000 ML BAG IV SCH (19:13)
[2017-11-01] MEDS: DILAUDID IV PRN ×7 (02:36→21:47)
[2017-11-01] MEDS: ZOFRAN IV PRN ×2 (02:36→18:58)
[2017-11-01] MEDS: D5W/0.45% NACL/KCL 30 MEQ 30 MEQ/1,000 ML BAG IV SCH (05:00)
[2017-11-01 06:56] LABS: Basophils % (Auto) 0.5 % (0.0-1.8); Eosinophils # (Auto) 0.1 K/mm3 (0.0-0.4); Eosinophils % (Auto) 1.7 % (0.0-4.3); Hematocrit 37.7 % (35.5-45.6); Hemoglobin 12.7 gm/dl (11.8-15.2); Lymphocytes # (Auto) 1.7 K/mm3 (1.2-5.4); Lymphocytes % (Auto) 24.5 % (13.4-35.0); Mean Corpuscular HGB Conc 34 % (32-34); Mean Corpuscular Hemoglobin 32 pg (28-32); Mean Corpuscular Volume 94 fl (84-94); Monocytes # (Auto) 0.9 K/mm3 (0.0-0.8); Monocytes % (Auto) 13.1 % (0.0-7.3); Platelet Count 359 K/mm3 (140-440); Red Blood Count 4.04 M/mm3 (3.65-5.03); Red Cell Distribution Width 15.2 % (13.2-15.2)
[2017-11-01 07:18] LABS: BUN/Creatinine Ratio 16; Blood Urea Nitrogen 13 mg/dL (9-20); Calcium 9.7 mg/dL (8.4-10.2); Hemolysis Index 0
[2017-11-01] MEDS: PEPCID IV SCH ×2 (09:09→21:46)
[2017-11-01] MEDS: SODIUM CHLORIDE FLUSH SYRINGE 10 ML IV SCH ×2 (09:11→21:49)
--- NOTE | 2017-11-01 10:05 | Progress Note ---
Assessment and Plan - Colon cancer s/p colon resection POD #6 We'll follow-up with oncology on an outpatient. - HTN (hypertension) - controlled She continues to have optimal control of blood pressure continue all antihypertensive medications. - Small bowel obstruction due to adhesions - on NGT faint Bowel sound - DVT PPx with SCD and lovenox Subjective Date of service: 11/01/17 Principal diagnosis: SBO, colon cnacer Interval history: pt is lying quietly in bed with NGT in place. No fever. Objective - Constitutional Vitals: Vital Signs - 12hr 18 11/01/17 23:50 05:59 Temperature 98.1 F 98.3 F Pulse Rate 65 75 Respiratory 20 16 Rate Blood Pressure 135/82 123/79 O2 Sat by Pulse 96 91 Oximetry General appearance: Present: no acute distress, well-nourished - EENT Eyes: PERRL, EOM intact - Neck Neck: supple, normal ROM - Respiratory Respiratory effort: normal Respiratory: bilateral: CTA - Cardiovascular Rhythm: regular Heart Sounds: Present: S1 & S2. Absent: gallop, rub Extremities: pulses intact, No edema, normal color, Full ROM - Gastrointestinal General gastrointestinal: Present: soft, non-tender, normal bowel sounds - Integumentary Integumentary: clear, warm, dry - Musculoskeletal Musculoskeletal: 1, strength equal bilaterally - Neurologic Neurologic: moves all extremities - Psychiatric Psychiatric: memory intact, appropriate mood/affect, intact judgment & insight - Labs CBC & Chem 7: 11/01/17 06:06 11/01/17 06:06 Labs: Abnormal lab results 11/01/17 Range/Units 06:06 [place] % (Auto) 13.1 H (0.0-7.3) % [place] # 0.9 H (0.0-0.8) K/mm3
--- NOTE | 2017-11-01 13:45 | XRay Report ---
ABDOMINAL SERIES: History: Followup small bowel obstruction. Compared to the abdominal series performed 2 days ago. Recent surgical changes are again noted. The nasogastric tube terminates in the fundus of the stomach. Erect chest film shows no acute or significant changes involving the heart or lung santizo. There is no evidence of free air beneath the diaphragms. The gas pattern within the abdomen is unremarkable. There is no evidence of bowel dilatation, significant air-fluid levels, or masses. Organ shadows are unremarkable. IMPRESSION: Abdominal series within normal limits.
--- NOTE | 2017-11-01 13:58 | Progress Note ---
Assessment and Plan POD # 6 Pt feeling better + flatus x 2 Abd softer. non tender Abd series much improved. resolving ileus was going to d/c ng but pt reluctant. wishes to wait until am. keep ng off suction observation ambulation continue present care Selected Entries 11/01/17 11:55 Temperature 98.2 F Pulse Rate 64 Respiratory 16 Rate Blood Pressure 135/85 Laboratory Tests 11/01/17 11/01/17 06:06 06:06 WBC 6.8 Hgb 12.7 Hct 37.7 Sodium 140 Potassium 4.1 Chloride 98.6 Carbon Dioxide 26 BUN 13 Creatinine 0.8 Objective Vital Signs - 12hr 11/01/17 11/01/17 05:59 11:55 Temperature 98.3 F 98.2 F Pulse Rate 75 64 Respiratory 16 16 Rate Blood Pressure 123/79 135/85 O2 Sat by Pulse 91 99 Oximetry - Labs 11/01/17 06:06 11/01/17 06:06 Diabetes panel 11/01/17 Range/Units 06:06 Sodium 140 (137-145) mmol/L Potassium 4.1 (3.6-5.0) mmol/L Chloride 98.6 (98-107) mmol/L Carbon Dioxide 26 (22-30) mmol/L BUN 13 (9-20) mg/dL Creatinine 0.8 (0.8-1.5) mg/dL Glucose 92 (75-100) mg/dL Calcium 9.7 (8.4-10.2) mg/dL Calcium panel 11/01/17 Range/Units 06:06 Calcium 9.7 (8.4-10.2) mg/dL Pituitary panel 11/01/17 Range/Units 06:06 Sodium 140 (137-145) mmol/L Potassium 4.1 (3.6-5.0) mmol/L Chloride 98.6 (98-107) mmol/L Carbon Dioxide 26 (22-30) mmol/L BUN 13 (9-20) mg/dL Creatinine 0.8 (0.8-1.5) mg/dL Glucose 92 (75-100) mg/dL Calcium 9.7 (8.4-10.2) mg/dL Adrenal panel 11/01/17 Range/Units 06:06 Sodium 140 (137-145) mmol/L Potassium 4.1 (3.6-5.0) mmol/L Chloride 98.6 (98-107) mmol/L Carbon Dioxide 26 (22-30) mmol/L BUN 13 (9-20) mg/dL Creatinine 0.8 (0.8-1.5) mg/dL Glucose 92 (75-100) mg/dL Calcium 9.7 (8.4-10.2) mg/dL
[2017-11-02] MEDS: D5W/0.45% NACL/KCL 30 MEQ 30 MEQ/1,000 ML BAG IV SCH (00:19)
[2017-11-02] MEDS: LOVENOX SUB-Q SCH ×2 (00:33→21:54)
[2017-11-02] MEDS: DILAUDID IV PRN ×6 (01:24→21:55)
[2017-11-02 06:17] LABS: Basophils % (Auto) 0.5 % (0.0-1.8); Eosinophils # (Auto) 0.1 K/mm3 (0.0-0.4); Eosinophils % (Auto) 1.4 % (0.0-4.3); Hematocrit 34.6 % (35.5-45.6); Hemoglobin 11.9 gm/dl (11.8-15.2); Lymphocytes # (Auto) 1.9 K/mm3 (1.2-5.4); Lymphocytes % (Auto) 26.2 % (13.4-35.0); Mean Corpuscular HGB Conc 34 % (32-34); Mean Corpuscular Hemoglobin 31 pg (28-32); Mean Corpuscular Volume 92 fl (84-94); Monocytes # (Auto) 0.9 K/mm3 (0.0-0.8); Monocytes % (Auto) 12.8 % (0.0-7.3); Platelet Count 346 K/mm3 (140-440); Red Blood Count 3.78 M/mm3 (3.65-5.03); Red Cell Distribution Width 15.1 % (13.2-15.2)
[2017-11-02 06:35] LABS: Alanine Aminotransferase 34 units/L (7-56); Albumin 3.7 g/dL (3.9-5); BUN/Creatinine Ratio 14; Blood Urea Nitrogen 11 mg/dL (9-20); Calcium 9.5 mg/dL (8.4-10.2); Hemolysis Index 31
[2017-11-02] MEDS: SODIUM CHLORIDE FLUSH SYRINGE 10 ML IV SCH ×2 (10:03→21:56)
[2017-11-02] MEDS: PEPCID IV SCH ×2 (10:03→21:55)
[2017-11-02] MEDS: ZOFRAN IV PRN ×2 (10:07→23:08)
[2017-11-02] MEDS ORDERED: DULCOLAX PR PRN (12:17)
[2017-11-02] MEDS: D5 IV SCH (13:22)
[2017-11-02] MEDS: KCL IV SCH (13:22)
[2017-11-02] MEDS: [UNRECOGNIZED DRUG - OTHER] IV SCH (13:22)
--- NOTE | 2017-11-02 15:34 | Progress Note ---
Assessment and Plan Assessment and plan: Patient is a 47 year old male with hx of colon cancer status post resection 5 years ago with no evidence of recurrence per patient and spouse, admitted with abdominal pain with associated N/V Small bowel obstruction -Status post lysis of adhesion Lactic acidosis -Resolved status post iv hydration Hypokalemia -Resolved following repletion History of colon cancer status post resection -For outpatient follow-up Transaminitis. -Will monitor. Anemia - STABLE Leukocytosis - Reactive. Resolved Hypertension -Stable DVT/GI prophy Plan of care discussed with patient and spouse. Disposition: For discharge when medically stable he is passing gas, NGT came out today. Await GS evaluation. History Interval history: Patient was seen and examined. Follow-up on current diagnosis. Overnight uneventful. Patient denies any chest pain, shortness breath, nausea/vomiting or severe headaches. Imaging, nursing note, chart, labs and old chart reviewed. Discussed with patient. Hospitalist Physical - Physical exam Narrative exam: GEN: WDWN, NAD, Awake, Alert, Orientated HEENT: NCAT, EOMI, PERRL, OP Clear NECK: supple, no adenopathy, no thyromegaly, no JVD CVS/HEART: RRR, normal S1S2, pulses present bilaterally CHEST/LUNGS: CTA B, Symmetrical chest expansion, good air entry bilaterally GI/Abdomen: soft, midline incision c/d/i, good bowel sounds, no guarding or rebound /Bladder: no suprapubic tenderness, no CVA or paraspinal tenderness EXT/Skin: no c/c/e, no obvious rash MSK: FROM x 4 Neuro: CN 2-12 grossly intact, no new focal deficits Psych: calm - Constitutional Vitals: Temp Pulse Resp BP Pulse Ox 98.1 F 68 20 129/78 92 11/02/17 11:40 11/02/17 11:40 11/02/17 11:40 11/02/17 11:40 11/02/17 11:40 General appearance: Present: no acute distress, well-nourished Results - Labs CBC & Chem 7: 11/02/17 05:40 11/02/17 05:40 Labs: Laboratory Last Values WBC 7.3 K/mm3 (4.5-11.0) 11/02/17 05:40 RBC 3.78 M/mm3 (3.65-5.03) 11/02/17 05:40 Hgb 11.9 gm/dl (11.8-15.2) 11/02/17 05:40 Hct 34.6 % (35.5-45.6) L 11/02/17 05:40 MCV 92 fl (84-94) 11/02/17 05:40 MCH 31 pg (28-32) 11/02/17 05:40 MCHC 34 % (32-34) 11/02/17 05:40 RDW 15.1 % (13.2-15.2) 11/02/17 05:40 Plt Count 346 K/mm3 (140-440) 11/02/17 05:40 Lymph % (Auto) 26.2 % (13.4-35.0) 11/02/17 05:40 [place] % (Auto) 12.8 % (0.0-7.3) H 11/02/17 05:40 Eos % (Auto) 1.4 % (0.0-4.3) 11/02/17 05:40 Baso % (Auto) 0.5 % (0.0-1.8) 11/02/17 05:40 Lymph # 1.9 K/mm3 (1.2-5.4) 11/02/17 05:40 [place] # 0.9 K/mm3 (0.0-0.8) H 11/02/17 05:40 Eos # 0.1 K/mm3 (0.0-0.4) 11/02/17 05:40 Baso # 0.0 K/mm3 (0.0-0.1) 11/02/17 05:40 Seg Neutrophils % 59.1 % (40.0-70.0) 11/02/17 05:40 Seg Neutrophils # 4.3 K/mm3 (1.8-7.7) 11/02/17 05:40 Sodium 137 mmol/L (137-145) 11/02/17 05:40 Potassium 4.3 mmol/L (3.6-5.0) 11/02/17 05:40 Chloride 99.5 mmol/L (98-107) 11/02/17 05:40 Carbon Dioxide 25 mmol/L (22-30) 11/02/17 05:40 Anion Gap 17 mmol/L 11/02/17 05:40 BUN 11 mg/dL (9-20) 11/02/17 05:40 Creatinine 0.8 mg/dL (0.8-1.5) 11/02/17 05:40 Estimated GFR > 60 ml/min 11/02/17 05:40 BUN/Creatinine Ratio 14 % 11/02/17 05:40 Glucose 95 mg/dL (75-100) 11/02/17 05:40 Lactic Acid 0.80 mmol/L (0.7-2.0) 10/27/17 20:28 Calcium 9.5 mg/dL (8.4-10.2) 11/02/17 05:40 Magnesium 2.10 mg/dL (1.7-2.3) 10/25/17 10:59 Total Bilirubin 0.70 mg/dL (0.1-1.2) 11/02/17 05:40 AST 20 units/L (5-40) 11/02/17 05:40 ALT 34 units/L (7-56) 11/02/17 05:40 Alkaline Phosphatase 142 units/L (35-129) H 11/02/17 05:40 Total Protein 6.7 g/dL (6.3-8.2) 11/02/17 05:40 Albumin 3.7 g/dL (3.9-5) L 11/02/17 05:40 Albumin/Globulin Ratio 1.2 % 11/02/17 05:40 Urine Color Yellow (Yellow) 10/24/17 Unknown Urine Turbidity Clear (Clear) 10/24/17 Unknown Urine pH 8.0 (5.0-7.0) H 10/24/17 Unknown Ur Specific [place] 1.021 (1.003-1.030) 10/24/17 Unknown Urine Protein <15 mg/dl mg/dL (Negative) 10/24/17 Unknown Urine Glucose (UA) Neg mg/dL (Negative) 10/24/17 Unknown Urine Ketones Tr mg/dL (Negative) 10/24/17 Unknown Urine Blood Neg (Negative) 10/24/17 Unknown Urine Nitrite Neg (Negative) 10/24/17 Unknown Urine Bilirubin Neg (Negative) 10/24/17 Unknown Urine Urobilinogen < 2.0 mg/dL (<2.0) 10/24/17 Unknown Ur Leukocyte Esterase Neg (Negative) 10/24/17 Unknown Urine WBC (Auto) 1.0 /HPF (0.0-6.0) 10/24/17 Unknown Urine RBC (Auto) < 1.0 /HPF (0.0-6.0) 10/24/17 Unknown U Epithel Cells (Auto) < 1.0 /HPF (0-13.0) 10/24/17 Unknown Urine Yeast (Budding) Few /HPF 10/24/17 Unknown
--- NOTE | 2017-11-02 19:47 | Progress Note ---
Assessment and Plan POD #7 Pt continues to improve. abilio d/c of ng. + BM Abd minimally distended. non tender. incision clean and dry. + BS stable cl liq d/c loki in am Selected Entries 11/02/17 17:28 Temperature 98.3 F Pulse Rate 65 Respiratory 20 Rate Blood Pressure 134/82 Laboratory Tests 11/02/17 11/02/17 05:40 05:40 WBC 7.3 Hgb 11.9 Hct 34.6 L Sodium 137 Potassium 4.3 Chloride 99.5 Carbon Dioxide 25 BUN 11 Objective Vital Signs - 12hr 11/02/17 11/02/17 11:40 17:28 Temperature 98.1 F 98.3 F Pulse Rate 68 65 Respiratory 20 20 Rate Blood Pressure 129/78 134/82 O2 Sat by Pulse 92 99 Oximetry - Labs 11/02/17 05:40 11/02/17 05:40 Diabetes panel 11/02/17 Range/Units 05:40 Sodium 137 (137-145) mmol/L Potassium 4.3 (3.6-5.0) mmol/L Chloride 99.5 (98-107) mmol/L Carbon Dioxide 25 (22-30) mmol/L BUN 11 (9-20) mg/dL Creatinine 0.8 (0.8-1.5) mg/dL Glucose 95 (75-100) mg/dL Calcium 9.5 (8.4-10.2) mg/dL AST 20 (5-40) units/L ALT 34 (7-56) units/L Alkaline Phosphatase 142 H (35-129) units/L Total Protein 6.7 (6.3-8.2) g/dL Albumin 3.7 L (3.9-5) g/dL Calcium panel 11/02/17 Range/Units 05:40 Calcium 9.5 (8.4-10.2) mg/dL Albumin 3.7 L (3.9-5) g/dL Pituitary panel 11/02/17 Range/Units 05:40 Sodium 137 (137-145) mmol/L Potassium 4.3 (3.6-5.0) mmol/L Chloride 99.5 (98-107) mmol/L Carbon Dioxide 25 (22-30) mmol/L BUN 11 (9-20) mg/dL Creatinine 0.8 (0.8-1.5) mg/dL Glucose 95 (75-100) mg/dL Calcium 9.5 (8.4-10.2) mg/dL Adrenal panel 11/02/17 Range/Units 05:40 Sodium 137 (137-145) mmol/L Potassium 4.3 (3.6-5.0) mmol/L Chloride 99.5 (98-107) mmol/L Carbon Dioxide 25 (22-30) mmol/L BUN 11 (9-20) mg/dL Creatinine 0.8 (0.8-1.5) mg/dL Glucose 95 (75-100) mg/dL Calcium 9.5 (8.4-10.2) mg/dL Total Bilirubin 0.70 (0.1-1.2) mg/dL AST 20 (5-40) units/L ALT 34 (7-56) units/L Alkaline Phosphatase 142 H (35-129) units/L Total Protein 6.7 (6.3-8.2) g/dL Albumin 3.7 L (3.9-5) g/dL
[2017-11-02] MEDS ORDERED: NORCO 5/325 PO PRN (19:48)
[2017-11-03] MEDS: DILAUDID IV PRN ×4 (04:22→14:28)
[2017-11-03] MEDS: D5 IV SCH ×2 (04:23→14:33)
[2017-11-03] MEDS: [UNRECOGNIZED DRUG - OTHER] IV SCH ×2 (04:23→14:33)
[2017-11-03] MEDS: KCL IV SCH ×2 (04:23→14:33)
[2017-11-03] MEDS: SODIUM CHLORIDE FLUSH SYRINGE 10 ML IV SCH (10:04)
[2017-11-03] MEDS: PEPCID IV SCH (10:05)
[2017-11-03] MEDS: ZOFRAN IV PRN ×2 (10:10→17:45)
[2017-11-03 12:01] VITALS: BP 136/85
--- NOTE | 2017-11-03 14:16 | Discharge Summary ---
Providers - Providers Date of Admission: 10/24/17 16:05 Date of discharge: 11/03/17 Attending physician: ANUJ BUCKNER 10/24/17 16:07 Consult to Physician [CONS] Routine Comment: Consulting Provider: MAGDALENO PEREZ Physician Instructions: Reason For Exam: bowel obstruction 10/24/17 17:05 Consult to Physician [CONS] Stat Comment: Consulting Provider: MAGDALENO PEREZ Physician Instructions: eval for care of SBO; Reason For Exam: small bowel obstruction Primary care physician: [employer] Hospitalization Condition: Stable Hospital course: Patient is a 47 year old male with hx of colon cancer status post resection 5 years ago with no evidence of recurrence per patient and spouse, admitted with abdominal pain with associated N/V Small bowel obstruction -Status post lysis of adhesion on 10/26/[address] Perez Lactic acidosis -Resolved status post iv hydration Hypokalemia -Resolved following repletion History of colon cancer status post resection -For outpatient follow-up Transaminitis. -Will monitor. Anemia - STABLE Leukocytosis - Reactive. Resolved Hypertension -Stable DVT/GI prophy Plan of care discussed with patient and spouse. Disposition: discharge when cleared by Dr. Perez, he is passing gas, +BM today and tolerated diet, Await GS clearance Disposition: DC-01 TO HOME OR SELFCARE Time spent for discharge: 31 minutes Core Measure Documentation - Palliative Care Palliative Care/ Comfort Measures: Not Applicable - Core Measures Any of the following diagnoses?: none - VTE Discharge Requirements Deep Vein Thrombosis/Pulmonary Embolism Present on Admission: No Has pt received <5 days of overlap therapy or INR<2.0: No Anticoagulant overlap therapy prescribed at discharge: No Contraindication No Overlap Therapy order at DC: Not Indicated Exam - Physical Exam Narrative exam: GEN: WDWN, NAD, Awake, Alert, Orientated x 3 HEENT: NCAT, EOMI, PERRL, OP Clear NECK: supple, no adenopathy, no thyromegaly, no JVD CVS/HEART: RRR, normal S1S2, pulses present bilaterally CHEST/LUNGS: CTA B, Symmetrical chest expansion, good air entry bilaterally GI/Abdomen: soft, midline incision c/d/i, good bowel sounds, no guarding or rebound /Bladder: no suprapubic tenderness, no CVA or paraspinal tenderness EXT/Skin: no c/c/e, no obvious rash MSK: FROM x 4 Neuro: CN 2-12 grossly intact, no new focal deficits Psych: calm - Constitutional Vitals: Temp Pulse Resp BP Pulse Ox 98.1 F 68 16 136/85 95 11/03/17 11:19 11/03/17 11:19 11/03/17 11:19 11/03/17 11:19 11/03/17 11:19 Plan Activity: other (no strenous activity until cleared by Dr. Perez) Diet: advance as tolerated Wound: per your surgeon's advice Special Instructions: record daily BP diary Additional Instructions: See your PCP or Dr. Perez prior to restarting BP medications, keep BP log and take to PCP or Dr. Perez Follow up with: PRIMARY CAREMD [Primary Care Provider] - 3-5 Days MAGDALENO PEREZ MD [Staff Physician] - 7 Days Forms: Work/School Release Form Prescriptions: Bisacodyl [Dulcolax suppos] 10 mg TN QDAY PRN #4 supp.rect PRN Reason: Constipation HYDROcodone/APAP 5-325 [[place] 5-325 mg TAB] 1 each PO Q4H PRN #12 tablet PRN Reason: Pain, Moderate (4-6) Ondansetron [Zofran Oral Liq] 4 mg PO Q4H PRN 5 Days ml PRN Reason: Nausea
--- NOTE | 2017-11-03 16:43 | Progress Note ---
Assessment and Plan Pt feeling well without compl. abilio cl liq breakfast and lunch. Abd soft, non tender. incision clean & dry surgically stable july d/c today on cl liq no carbonated with Ensure shake supplementation BID rto this Fri for reassessment and advancement of diet Selected Entries 11/03/17 11:19 Temperature 98.1 F Pulse Rate 68 Respiratory 16 Rate Blood Pressure 136/85 Objective Vital Signs - 12hr 11/03/17 11/03/17 11/03/17 04:52 05:26 11:19 Temperature 98.2 F 98.1 F Pulse Rate 66 68 Respiratory 20 16 16 Rate Blood Pressure 123/76 136/85 O2 Sat by Pulse 95 95 Oximetry - Labs 11/02/17 05:40 11/02/17 05:40
== END 2017-11-03 18:40 | disposition home or self-care (01) | DRG 336 ==
LOC: ED 12:10 → 3A 16:05
PROVIDERS: ADMIT Internal Medicine; ATTEND Internal Medicine
PROC: 0D9670Z Drainage of Stomach with Drainage Device, Via Natural or Artificial Opening (ICD-10-PCS; 2017-10-24)
PROC: 0DNU0ZZ Release Omentum, Open Approach (ICD-10-PCS; principal; 2017-10-26)
PROC: 0DNA0ZZ Release Jejunum, Open Approach (ICD-10-PCS; 2017-10-26)
DX: K56.50 Intestinal adhesions [bands], unspecified as to partial versus complete obstruction (principal); E87.2 Acidosis; E87.6 Hypokalemia; I10 Essential (primary) hypertension; D64.9 Anemia, unspecified; D72.829 Elevated white blood cell count, unspecified; Z82.49 Family history of ischemic heart disease and other diseases of the circulatory system; Z90.49 Acquired absence of other specified parts of digestive tract
CPT/HCPCS: 36415; 74022; 74177; 80048; 80053; 81001; 82140; 83735; 85025; 87040; 87086; 94667; J0330; J0360; J1100; J1170; J1200; J1650; J1885; J2060; J2175; J2270; J2405; J2704; J2710; J3010; J3480; J7030; Q9967